=== PATIENT | male | born 1965 | race Caucasian/White ===

== ENCOUNTER 2016-02-10 08:05 | Emergency (ER) | payer BC ==
[2016-02-10 08:22] VITALS: BP 161/112
--- NOTE | 2016-02-10 08:34 | UC ---
Throat Pain/Nasal Melquiades HPI - HPI Summary HPI Summary: Nasal congestion and cough starting 6 days ago. Denies fever, wheezing, or trouble breathing. No hx of breathing problems or heart disease. - History of Current Complaint Chief Complaint: UCGeneralIllness Stated Complaint: COUGH CONGESTION Time Seen by Provider: 02/10/16 08:24 Hx Obtained From: Patient Onset/Duration: Gradual Onset, Lasting Days Severity: Mild Cough: Nonproductive Associated Signs & Symptoms: Positive: Nasal Discharge. Negative: Wheezing, Fever, Vomiting - Allergies/Home Medications Allergies/Adverse Reactions: Allergies Allergy/AdvReac Type Severity Reaction Status Date / Time JITENDRA Inhibitors Allergy Rash Verified 07/21/15 08:21 Home Medications: Home Medications Multiple Vitamin [Multi Vitamin] 1 tab PO DAILY 02/10/16 [History Confirmed 03/27] Prasco (Bp Med) 1 tab PO DAILY 02/10/16 [History] PMH/Surg Hx/FS Hx/Imm Hx Endocrine History Of: Denies: Diabetes, Thyroid Disease Cardiovascular History Of: Reports: Hypertension Denies: Cardiac Disorders, Pacemaker/ICD Respiratory History Of: Denies: COPD, Asthma GI/ History Of: Reports: Gall Bladder Disease - cholecystectomy Denies: Ulcer - Surgical History Surgical History: Yes Surgery Procedure, Year, and Place: Gallbladdder 15 years ago. Tonsils 10 years ago - Family History Known Family History: Positive: Hypertension - Social History Occupation: Employed Full-time Lives: With Family Alcohol Use: Occasionally Substance Use Type: None Smoking Status (MU): Never Smoked Tobacco - Immunization History Most Recent Influenza Vaccination: fall 2013 Most Recent Tetanus Shot: current Most Recent Pneumonia Vaccination: never Review of Systems Constitutional: Negative Skin: Negative Eyes: Negative ENT: Nasal Discharge Respiratory: Cough Cardiovascular: Negative Gastrointestinal: Negative Genitourinary: Negative Motor: Negative Neurovascular: Negative Musculoskeletal: Negative Neurological: Negative Psychological: Negative All Other Systems Reviewed And Are Negative: Yes Physical Exam Triage Information Reviewed: Yes Appearance: Well-Appearing, No Pain Distress, Well-Nourished Vital Signs: Initial Vital Signs Temp 97.6 F 02/10/16 08:20 Pulse 70 02/10/16 08:20 Resp 18 02/10/16 08:20 BP 161/112 02/10/16 08:20 Pulse Ox 98 02/10/16 08:20 Vital Signs Reviewed: Yes Eye Exam: Normal Eyes: Positive: Conjunctiva Clear ENT: Positive: Hearing grossly normal, Pharynx normal, Nasal congestion, TMs normal. Negative: Pharyngeal erythema, Tonsillar swelling Dental Exam: Normal Neck exam: Normal Neck: Positive: Supple, Nontender, No Lymphadenopathy Respiratory Exam: Normal Respiratory: Positive: Chest non-tender, Lungs clear, Normal breath sounds, No respiratory distress, No accessory muscle use Cardiovascular Exam: Normal Cardiovascular: Positive: RRR, No Murmur Musculoskeletal Exam: Normal Neurological Exam: Normal Psychological Exam: Normal Skin Exam: Normal Throat Pain/Nasal Course/Dx - Differential Dx/Diagnosis Provider Diagnoses: URI, likely viral Discharge - Discharge Plan Condition: Stable Disposition: HOME Prescriptions: Benzonatate CAP* [Tessalon CAP*] 100 mg PO TID PRN #30 cap PRN Reason: Cough Guaifenesin-Codeine [Guaiatussin AC] 5 - 10 ml PO Q6H #120 ml MDD 40mL Patient Education Materials: Upper Respiratory Infection (ED) Referrals: Milton Ford MD [Primary Care Provider] - If Needed Additional Instructions: Call or return if you develop increasing fever, shortness of breath, chest pain , bloody sputum, or otherwise worsen. If you have not improved at all after several days, contact your primary care physician or return here.
== END 2016-02-10 08:32 | disposition home or self-care (01) ==
LOC: UCEAST 08:05
DX: J06.9 Acute upper respiratory infection, unspecified (principal)
CPT/HCPCS: 99212; G0463

== ENCOUNTER 2016-03-16 09:31 | Emergency (ER) | payer BC ==
[2016-03-16] MEDS: NS 0.9% 1000 ML* 2,000 ML IV ONE (10:15)
[2016-03-16 10:39] LABS: Hematocrit 51 % (42-52); Hemoglobin 16.9 g/dl (14.0-18.0); Mean Corpuscular HGB Conc 33 g/dl (31-36); Mean Corpuscular Hemoglobin 29 pg (27-31); Mean Corpuscular Volume 86 fL (80-94); Mean Platelet Volume 9 um3 (7.4-10.4); Red Blood Count 5.86 10^6/ul (4.0-5.4); Red Cell Distribution Width 13 % (10.5-15); White Blood Count 15.3 10^3/ul (3.5-10.8)
[2016-03-16 11:05] LABS: Albumin 4.3 g/dL (3.2-5.2); BUN/Creatinine Ratio 16.5 (8-20); C Reactive Protein 8.17 mg/L (< 5.00); Calcium 9.2 mg/dL (8.6-10.3); EGFR African American 114.4 (>60); EGFR Non-African American 88.9 (>60); Globulin 2.9 g/dL (2-4); Magnesium 1.9 mg/dL (1.9-2.7); Potassium 3.7 mmol/L (3.5-5.0); Total Bilirubin 0.8 mg/dL (0.2-1.0); Total Protein 7.2 g/dL (6.4-8.9)
[2016-03-16] MEDS ORDERED: Iohexol 350* (CONTRAST) 500 ML MDV IV ONE (11:37)
[2016-03-16 11:57] LABS: Urine Bilirubin Negative (Negative); Urine Glucose Negative (Negative); Urine Nitrite Negative (Negative)
--- NOTE | 2016-03-16 12:05 | RAD ---
Indication: Chest and abdominal pain, epigastric pain. IV contrast: Administered 99.8 ml of OMNIPAQUE 350 mgi/ml. CTA of the chest, abdomen and pelvis was performed after IV contrast administration. Coronal and sagittal reconstructed images were obtained. No oral contrast was administered. The ascending aorta, aortic arch and descending thoracic aorta demonstrates no evidence of aortic dissection. No aneurysmal dilatation is noted. The inferior thyroid lobes are unremarkable. There is no mediastinal or hilar adenopathy noted. The trachea and major bronchi appear patent. The visualized pulmonary arteries and veins demonstrate no evidence of filling defects to suggest pulmonary embolus. Dependent changes are noted in the lung groves. No alveolar consolidation is noted. CTA of the abdomen and pelvis demonstrates no evidence of aneurysm dilatation. Common iliac arteries and external iliac arteries are tortuous but do not demonstrate aneurysmal dilatation. The liver is diffusely decreased in density consistent with hepatic steatosis. The spleen is normal in size. The pancreas demonstrates no mass or pancreatic duct dilatation. No peripancreatic fluid is noted. Common duct is not dilated. Patient is status post cholecystectomy. No adrenal masses are noted. The kidneys demonstrate symmetric nephrograms. No retroperitoneal adenopathy is noted. No dilated loops of bowel are noted. No free fluid is identified. The visualized bony structures are otherwise unremarkable. IMPRESSION: No evidence of aortic dissection. No definite pulmonary embolus is noted. No evidence of descending thoracic aorta aneurysm or abdominal aortic aneurysm. Hepatic steatosis noted. No evidence of peripancreatic fluid or infiltration is noted to suggest pancreatitis. Patient is status post cholecystectomy.
[2016-03-16 12:42] VITALS: BP 131/94
--- NOTE | 2016-03-16 13:39 | ED ---
John Gupta Adam, scribed for Alex Sen MD on 03/16/16 at 0957 . HPI Chest Pain - HPI Summary HPI Summary: Pt is a 50 year old male presenting with a sudden onset CP and abdominal pain. He states that the pain woke him up at 01:00 this morning and has been intermittent since then. He describes the CP and abd pain as two distinct areas of pain without continuity between them, but he states that they set on simultaneously. The CP is described as a mid-sternal tightness with associated right shoulder pain. The abdominal pain is localized around the epigastrium and does not radiate. Pt states that he has never had pain like this last for this long. He has not taken any medication for the pain. He denies SOB, nausea, diaphoresis, diarrhea, vomiting, fever, chills, myalgia, pain/swelling in the legs, and testicular pain. He last ate at 18:30 last night. He had a recent BM that was normal. 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 PMHx of HTN. Surgical Hx of choly; no appy. Negative Hx of GERD and ulcers. No tobacco/ alcohol. - History of Current Complaint Chief Complaint: EDAbdPain Time Seen by Provider: 03/16/16 09:44 Hx Obtained From: Patient Onset/Duration: Started Hours Ago, Atraumatic, Still Present Timing: Intermittent Initial Severity: Moderate Current Severity: Moderate Pain Intensity: 5 Pain Scale Used: 0-10 Numeric Chest Pain Location: Mid Sternal Chest Pain Radiates: Yes Chest Pain Radiates To:: Epigastric Character: Tightness Aggravating Factor(s): Nothing Alleviating Factor(s): Nothing Associated Signs and Symptoms: Positive: Chest Pain, Abdominal Pain - Allergy/Home Medications Allergies/Adverse Reactions: Allergies Allergy/AdvReac Type Severity Reaction Status Date / Time JITENDRA Inhibitors Allergy Rash Verified 03/16/16 10:13 PMH/Surg Hx/FS Hx/Imm Hx Endocrine/Hematology History: Reports: Hx Blood Disorders - erythrocytosis (Dr. Rangel) Denies: Hx Diabetes, Hx Thyroid Disease Cardiovascular History: Reports: Hx Hypertension Denies: Hx Pacemaker/ICD Respiratory History: Reports: Hx Sleep Apnea Denies: Hx Asthma, Hx Chronic Obstructive Pulmonary Disease (COPD) GI History: Reports: Hx Gall Bladder Disease - cholecystectomy Denies: Hx Ulcer Musculoskeletal History: Reports: Hx Back Problems - pain, Other Musculoskeletal History - knee pain Sensory History: Reports: Hx Contacts or Glasses Denies: Hx Hearing Aid Opthamlomology History: Reports: Hx Contacts or Glasses Psychiatric History: Denies: Hx Panic Disorder - Surgical History Surgery Procedure, Year, and Place: Gallbladdder 15 years ago. Tonsils 10 years ago Infectious Disease History: No Infectious Disease History: Denies: Hx Clostridium Difficile, Hx Hepatitis, Hx Human Immunodeficiency Virus (HIV), Hx of Known/Suspected MRSA, Hx Shingles, Hx Tuberculosis, History Other Infectious Disease, Traveled Outside the [place] in Last 30 Days - Family History Known Family History: Positive: Hypertension - Social History Occupation: Employed Full-time Lives: With Family - Alcohol Use: Occasionally Hx Substance Use: No Substance Use Type: Reports: None Hx Tobacco Use: No Smoking Status (MU): Never Smoked Tobacco Review of Systems Negative: Fever, Chills, Skin Diaphoresis Positive: Chest Pain Negative: Shortness Of Breath Positive: Abdominal Pain. Negative: Vomiting, Diarrhea, Nausea Negative: Myalgia All Other Systems Reviewed And Are Negative: Yes Physical Exam - Summary Physical Exam Summary: The patient is well-nourished in no acute distress and in no acute pain. The skin is diaphoretic. HEENT: The head is normocephalic and atraumatic. The pupils are equal and reactive. The conjunctivae are clear and without drainage. Nares are patent and without drainage. Mouth reveals moist mucous membranes and the throat is without erythema and exudate. The external ears are intact. Neck is supple with full range of motion and non-tender. There are no carotid bruits. There is no neck vein distension. Respiratory: Chest is non-tender. Lungs are clear to auscultation and breath sounds are symmetrical and equal. Cardiovascular: Heart is regular rate and rhythm. High BP. There is no murmur or rub auscultated. There is no peripheral edema and pulses are symmetrical and equal. Abdomen: Epigastric and periumbilical tenderness. Musculoskeletal: Reproducible pain in the chest. No calf swelling/tenderness. Neurological: Patient is alert and oriented to person, place and time. The patient has symmetrical motor strength in all four extremities. Cranial nerves are grossly intact. Deep tendon reflexes are symmetrical and equal in all four extremities. Psychiatric: The patient has an appropriate affect and does not exhibit any anxiety or depression. Triage Information Reviewed: Yes Vital Signs On Initial Exam: Initial Vitals Temp Pulse Resp BP Pulse Ox 98.1 F 84 18 159/103 98 03/16/16 09:33 03/16/16 09:33 03/16/16 09:33 03/16/16 09:33 03/16/16 09:33 Vital Signs Reviewed: Yes - Noel Coma Scale Coma Scale Total: 15 Diagnostics - Vital Signs Vital Signs Temp Pulse Resp BP Pulse Ox 03/16/16 09:33 98.1 F 84 18 159/103 98 - Laboratory Lab Results: Lab Results 03/16/16 03/16/16 03/16/16 Range/Units 09:50 09:50 09:50 WBC 15.3 H (3.5-10.8) 10^3/ul RBC 5.86 H (4.0-5.4) 10^6/ul Hgb 16.9 (14.0-18.0) g/dl Hct 51 (42-52) % MCV 86 (80-94) fL MCH 29 (27-31) pg MCHC 33 (31-36) g/dl RDW 13 (10.5-15) % Plt Count 263 (150-450) 10^3/ul MPV 9 (7.4-10.4) um3 Neut % (Auto) 80.4 (38-83) % Lymph % (Auto) 9.7 L (25-47) % [place] % (Auto) 7.4 (1-9) % Eos % (Auto) 2.0 (0-6) % Baso % (Auto) 0.5 (0-2) % Absolute Neuts (auto) 12.3 H (1.5-7.7) 10^3/ul Absolute Lymphs (auto) 1.5 (1.0-4.8) 10^3/ul Absolute Monos (auto) 1.1 H (0-0.8) 10^3/ul Absolute Eos (auto) 0.3 (0-0.6) 10^3/ul Absolute Basos (auto) 0.1 (0-0.2) 10^3/ul Absolute Nucleated RBC 0 10^3/ul Nucleated RBC % 0 INR (Anticoag Therapy) (0.89-1.11) Sodium 137 (133-145) mmol/L Potassium 3.7 (3.5-5.0) mmol/L Chloride 105 (101-111) mmol/L Carbon Dioxide 25 (22-32) mmol/L Anion Gap 7 (2-11) mmol/L BUN 15 (6-24) mg/dL Creatinine 0.91 (0.67-1.17) mg/dL Est GFR ( Amer) 114.4 (>60) Est GFR (Non-Af Amer) 88.9 (>60) BUN/Creatinine Ratio 16.5 (8-20) Glucose 150 H (70-100) mg/dL Lactic Acid 1.2 (0.5-2.0) mmol/L Calcium 9.2 (8.6-10.3) mg/dL Magnesium 1.9 (1.9-2.7) mg/dL Total Bilirubin 0.80 (0.2-1.0) mg/dL AST 28 (13-39) U/L ALT 37 (7-52) U/L Alkaline Phosphatase 57 (34-104) U/L Total Creatine Kinase 149 (10-223) U/L Troponin I 0.00 (<0.04) ng/mL C-Reactive Protein 8.17 H (< 5.00) mg/L B-Natriuretic Peptide ( - 100) pg/mL Total Protein 7.2 (6.4-8.9) g/dL Albumin 4.3 (3.2-5.2) g/dL Globulin 2.9 (2-4) g/dL Albumin/Globulin Ratio 1.5 (1-3) Amylase 42 (29-103) U/L Lipase 27 (11.0-82.0) U/L Urine Color Urine Appearance Urine pH (5-9) Ur Specific [place] (1.010-1.030) Urine Protein (Negative) Urine Ketones (Negative) Urine Blood (Negative) Urine Nitrate (Negative) Urine Bilirubin (Negative) Urine Urobilinogen (Negative) Ur Leukocyte Esterase (Negative) Urine Glucose (Negative) Urine Ascorbic Acid (Negative) 03/16/16 03/16/16 03/16/16 Range/Units 09:50 09:50 11:40 WBC (3.5-10.8) 10^3/ul RBC (4.0-5.4) 10^6/ul Hgb (14.0-18.0) g/dl Hct (42-52) % MCV (80-94) fL MCH (27-31) pg MCHC (31-36) g/dl RDW (10.5-15) % Plt Count (150-450) 10^3/ul MPV (7.4-10.4) um3 Neut % (Auto) (38-83) % Lymph % (Auto) (25-47) % [place] % (Auto) (1-9) % Eos % (Auto) (0-6) % Baso % (Auto) (0-2) % Absolute Neuts (auto) (1.5-7.7) 10^3/ul Absolute Lymphs (auto) (1.0-4.8) 10^3/ul Absolute Monos (auto) (0-0.8) 10^3/ul Absolute Eos (auto) (0-0.6) 10^3/ul Absolute Basos (auto) (0-0.2) 10^3/ul Absolute Nucleated RBC 10^3/ul Nucleated RBC % INR (Anticoag Therapy) 0.97 (0.89-1.11) Sodium (133-145) mmol/L Potassium (3.5-5.0) mmol/L Chloride (101-111) mmol/L Carbon Dioxide (22-32) mmol/L Anion Gap (2-11) mmol/L BUN (6-24) mg/dL Creatinine (0.67-1.17) mg/dL Est GFR ( Amer) (>60) Est GFR (Non-Af Amer) (>60) BUN/Creatinine Ratio (8-20) Glucose (70-100) mg/dL Lactic Acid (0.5-2.0) mmol/L Calcium (8.6-10.3) mg/dL Magnesium (1.9-2.7) mg/dL Total Bilirubin (0.2-1.0) mg/dL AST (13-39) U/L ALT (7-52) U/L Alkaline Phosphatase (34-104) U/L Total Creatine Kinase (10-223) U/L Troponin I (<0.04) ng/mL C-Reactive Protein (< 5.00) mg/L B-Natriuretic Peptide 52 ( - 100) pg/mL Total Protein (6.4-8.9) g/dL Albumin (3.2-5.2) g/dL Globulin (2-4) g/dL Albumin/Globulin Ratio (1-3) Amylase (29-103) U/L Lipase (11.0-82.0) U/L Urine Color Yellow Urine Appearance Clear Urine pH 5.0 (5-9) Ur Specific [place] 1.017 (1.010-1.030) Urine Protein Negative (Negative) Urine Ketones Negative (Negative) Urine Blood Negative (Negative) Urine Nitrate Negative (Negative) Urine Bilirubin Negative (Negative) Urine Urobilinogen Negative (Negative) Ur Leukocyte Esterase Negative (Negative) Urine Glucose Negative (Negative) Urine Ascorbic Acid * H (Negative) Result Diagrams: 03/16/16 09:50 03/16/16 09:50 Lab Statement: Any lab studies that have been ordered have been reviewed, and results considered in the medical decision making process. - CT CHEST/ABDOMEN/PELVIS CTA CT Interpretation Completed By: Radiologist - EKG 09:37 Cardiac Rate: NL - 63 BPM EKG Rhythm: Sinus Rhythm - Normal axis ST Segment: Non-Specific - Changes throughout EKG Interpretation: ST depressions in V4-V6 - Additional Comments Diagnostic Additional Comments: Troponin I - 0.00 Re-Evaluation - Re-Evaluation First Eval Re-Evaluation Time: 12:25 Change: Improved - Patient is feeling better. I reviewed CTA and lab work results. Patient will be discharged with Protonix. Chest Pain Course/Dx - Chest Pain Differential Diagnosis/HQI/PQRI: Angina, Aortic Aneurysm, GI Disease, Pulmonary Edema, Other: - peptic ulcer disease, GERD - Diagnoses Provider Diagnoses: GERD (gastroesophageal reflux disease) Discharge - Discharge Plan Condition: Stable Disposition: HOME Prescriptions: Pantoprazole TAB (NF) [Protonix TAB (NF)] 40 mg PO DAILY #30 tab Patient Education Materials: Gastroesophageal Reflux Disease (ED) Referrals: Milton Ford MD [Primary Care Provider] - Additional Instructions: Follow up with Dr. Ford. The documentation as recorded by the John perdomo Adam accurately reflects the service I personally performed and the decisions made by me, Alex Sen MD.
== END 2016-03-16 12:40 | disposition home or self-care (01) ==
LOC: ED 09:31
DX: K21.9 Gastro-esophageal reflux disease without esophagitis (principal); R07.9 Chest pain, unspecified; R10.9 Unspecified abdominal pain
CPT/HCPCS: 36415; 71275; 74174; 80053; 81003; 82150; 82550; 83605; 83690; 83735; 83880; 84484; 85025; 85610; 86140; 93005; 99283; Q9967

== ENCOUNTER 2016-06-14 07:57 | Emergency (ER) | payer BC ==
[2016-06-14] MEDS ORDERED: Ibuprofen TAB* 600 MG PO ONE (08:12)
--- NOTE | 2016-06-14 08:17 | UC ---
Hand/Wrist HPI - HPI Summary HPI Summary: While watching sports on TV last night pt became upset and slapped hand down hard on arm of chair. Now pain in L hand, especially near base of thumb and along 5th MC. No prior sx or fx. - History Of Current Complaint Chief Complaint: UCUpperExtremity Stated Complaint: HAND INJURY Time Seen by Provider: 06/14/16 08:07 Hx Obtained From: Patient ?: No Onset/Duration: Sudden Onset Severity Initially: Moderate Severity Currently: Moderate Character Of Pain: Dull, Stiffness Aggravating Factor(s): Movement Alleviating: Rest, Ice Associated Signs And Symptoms: Positive: Swelling Related History: Dominant Hand Right - Allergies/Home Medications Allergies/Adverse Reactions: Allergies Allergy/AdvReac Type Severity Reaction Status Date / Time JITENDRA Inhibitors Allergy Rash Verified 03/16/16 10:13 Home Medications: Home Medications Ranitidine HCl [Zantac] 06/14/16 [History] PMH/Surg Hx/FS Hx/Imm Hx Endocrine History Of: Denies: Diabetes, Thyroid Disease Cardiovascular History Of: Reports: Hypertension Denies: Cardiac Disorders, Pacemaker/ICD Respiratory History Of: Denies: COPD, Asthma GI/ History Of: Reports: Gall Bladder Disease - cholecystectomy Denies: Ulcer - Surgical History Surgical History: Yes Surgery Procedure, Year, and Place: Gallbladdder 15 years ago. 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 Lives: With Family Alcohol Use: Occasionally Substance Use Type: None Smoking Status (MU): Never Smoked Tobacco - Immunization History Most Recent Influenza Vaccination: fall 2013 Most Recent Tetanus Shot: current Most Recent Pneumonia Vaccination: never Review of Systems Constitutional: Negative Skin: Negative Eyes: Negative ENT: Negative Respiratory: Negative Cardiovascular: Negative Gastrointestinal: Negative Genitourinary: Negative Motor: Negative Neurovascular: Negative Musculoskeletal: Arthralgia - pain in L hand Neurological: Negative Psychological: Negative All Other Systems Reviewed And Are Negative: Yes Physical Exam Triage Information Reviewed: Yes Appearance: Well-Appearing, No Pain Distress, Well-Nourished Vital Signs: Initial Vital Signs Temp 98.2 F 06/14/16 08:01 Pulse 68 06/14/16 08:01 Resp 16 06/14/16 08:01 BP 163/101 06/14/16 08:01 Pulse Ox 99 06/14/16 08:01 Vital Signs Reviewed: Yes Eye Exam: Normal Eyes: Positive: Conjunctiva Clear ENT Exam: Normal ENT: Positive: Normal ENT inspection, Hearing grossly normal, Pharynx normal, TMs normal Dental Exam: Normal Neck exam: Normal Neck: Positive: Supple, Nontender, No Lymphadenopathy Respiratory Exam: Normal Respiratory: Positive: Chest non-tender, Lungs clear, Normal breath sounds, No respiratory distress, No accessory muscle use Cardiovascular Exam: Normal Cardiovascular: Positive: RRR, No Murmur Musculoskeletal: Positive: Strength Limited @ - 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 Elevated blood pressure due to pain Discharge - Discharge Plan Condition: Stable Disposition: HOME Patient Education Materials: Hand Sprain (ED) Referrals: Milton Ford MD [Primary Care Provider] - Julius Romero MD [Medical Doctor] - Additional Instructions: Use the splint as needed only -- you may remove for bathing and/or sleeping. If your pain is not completely or nearly resolved within a week, please call the orthopedist listed here to make a follow-up appointment. I do not see any broken bones in your x-ray; a radiologist will put in an interpretation later and I will call you if we need to change the plan.
[2016-06-14 08:56] VITALS: BP 137/95
--- NOTE | 2016-06-14 09:24 | RAD ---
INDICATION: Pain at the base of the left thumb and fifth metacarpal after striking hand on wooden surface the previous night COMPARISON: None. TECHNIQUE: 4 views of the left hand were obtained. FINDINGS: The adequately corticated bones are in normal alignment. No significant focal osseous abnormality or fracture is seen. Joint spaces appear maintained. IMPRESSION: Normal left hand radiograph. If the patient's symptoms persist, follow-up imaging is recommended.
== END 2016-06-14 08:56 | disposition home or self-care (01) ==
LOC: UCEAST 07:57
DX: S63.92XA Sprain of unspecified part of left wrist and hand, initial encounter (principal); I10 Essential (primary) hypertension; R52 Pain, unspecified; Z90.49 Acquired absence of other specified parts of digestive tract; W22.09XA Striking against other stationary object, initial encounter
CPT/HCPCS: 99212; A9270-GY; G0463

== ENCOUNTER 2016-08-20 14:47 | Emergency (ER) | payer BC ==
[2016-08-20 15:18] VITALS: BP 149/100
[2016-08-20] MEDS ORDERED: Ondansetron INJ* 2 MG/ML VIAL IV ONE (16:02)
[2016-08-20] MEDS ORDERED: NS 0.9% 1000 ML* 1,000 ML IV ONE (16:02)
--- NOTE | 2016-08-20 17:03 | UC ---
Gabrielle Gupta Edward, scribed for Josesito Serrano MD on 08/20/16 at 1549 . HPI Febrile Illness - HPI Summary HPI Summary: 50 y/o male presents to [facility] c/o fever starting last night. Associated sx: GREGG, diaphoresis, chills, intermittent ABD cramping, dizziness, body aches - stiff neck, lower back aches, knee aches, diarrhea, nausea, mild cough, and mild ear pressure that started last night. Denies rhinorrhea, sore throat, problems with urination, rash. Patient does not have a thermometer at home. PMHx HTN. Patient took Tylenol last night for symptoms. - History of Current Complaint Chief Complaint: UCGeneralIllness Time Seen by Provider: 08/20/16 15:48 Hx Obtained From: Patient Onset/Duration: Started Days Ago - Last night Associated Signs and Symptoms: Chills, Cough - Mild, Diaphoresis, Diarrhea, Headache, Joint Pain - Knee, lower back, Nausea, Stiff Neck, Other: - Mild eaer pressure - Allergy/Home Medications Allergies/Adverse Reactions: Allergies Allergy/AdvReac Type Severity Reaction Status Date / Time JITENDRA Inhibitors Allergy Rash Verified 08/20/16 15:18 Home Medications: Home Medications Bp Med* 08/20/16 [History] PMH/Surg Hx/FS Hx/Imm Hx Previously Healthy: No Endocrine/Hematology History: Reports: Hx Blood Disorders - erythrocytosis (Dr. Rangel) Denies: Hx Diabetes, Hx Thyroid Disease Cardiovascular History: Reports: Hx Hypertension Denies: Hx Pacemaker/ICD Respiratory History: Reports: Hx Sleep Apnea Denies: Hx Asthma, Hx Chronic Obstructive Pulmonary Disease (COPD) GI History: Reports: Hx Gall Bladder Disease - cholecystectomy Denies: Hx Ulcer Musculoskeletal History: Reports: Hx Back Problems - pain, Other Musculoskeletal History - knee pain Sensory History: Reports: Hx Contacts or Glasses Denies: Hx Hearing Aid Opthamlomology History: Reports: Hx Contacts or Glasses Psychiatric History: Denies: Hx Panic Disorder - Surgical History Surgery Procedure, Year, and Place: Gallbladdder 15 years ago. Tonsils 10 years ago Infectious Disease History: No Infectious Disease History: Denies: Hx Clostridium Difficile, Hx Hepatitis, Hx Human Immunodeficiency Virus (HIV), Hx of Known/Suspected MRSA, Hx Shingles, Hx Tuberculosis, Hx Known/ Suspected VRE, Hx Known/Suspected VRSA, History Other Infectious Disease, Traveled Outside the [place] in Last 30 Days - Family History Known Family History: Positive: Hypertension, Diabetes - Social History Alcohol Use: Occasionally Hx Substance Use: No Substance Use Type: Reports: None Hx Tobacco Use: No Smoking Status (MU): Never Smoked Tobacco Review of Systems Constitutional: Fever, Chills Skin: Negative Eyes: Negative ENT: Sore Throat, Ear Ache - Slight ear pressure Respiratory: Cough - Mild Cardiovascular: Negative Gastrointestinal: Diarrhea, Nausea Genitourinary: Negative Motor: Negative Neurovascular: Negative Musculoskeletal: Other: - Body aches - stiff neck, lower back aches, knee aches Neurological: Headache Psychological: Negative All Other Systems Reviewed And Are Negative: Yes Physical Exam Triage Information Reviewed: Yes Appearance: No Pain Distress, Ill-Appearing - Mild to moderately Vital Signs: Initial Vital Signs Temp 98.9 F 08/20/16 15:15 Pulse 78 08/20/16 15:15 Resp 16 08/20/16 15:15 BP 149/100 08/20/16 15:15 Pulse Ox 99 08/20/16 15:15 Vital Signs Reviewed: Yes Eyes: Positive: Conjunctiva Clear ENT: Positive: Pharynx normal, Other: - Clear fluid behind L eardrum. R eardrum normal. Neck: Positive: Supple, Nontender Respiratory: Positive: Chest non-tender, Lungs clear, Normal breath sounds Cardiovascular: Positive: RRR Abdomen Description: Positive: Nontender, Soft Bowel Sounds: Positive: Present Musculoskeletal: Positive: Strength Intact, Other: - Pain w/ ROM @ neck Neurological Exam: Normal Neurological: Positive: Alert Psychological Exam: Normal Psychological: Positive: Age Appropriate Behavior Skin Exam: Other - Mildly diaphoretic Course/Dx - Course Course Of Treatment: GENERALIZED FEBRILE ILLNEE. NO RASH. NO FOCAL SOURCE. WITH GREGG, NECK/BACK PAIN; PATIENT TRANSFERED TO ED FOR FURTHER EVALUATION. Assessment/Plan: Medications reviewed upon visit. - Diagnoses Clinic Provider Diagnoses: FEBRILE ILLNESS WITH HEADACHE, BACK PAIN AND ABDOMINAL PAIN Discharge - Discharge Plan Condition: Stable Disposition: ADMITTED TO [facility] Referrals: Milton Ford MD [Primary Care Provider] - The documentation as recorded by the Gabrielle perdomo Edward accurately reflects the service I personally performed and the decisions made by , Josesito Serrano MD.
== END 2016-08-20 16:31 | disposition short-term general hospital (02) ==
LOC: UCEAST 14:47
DX: R50.9 Fever, unspecified (principal); R51 Headache; R10.9 Unspecified abdominal pain; M54.5 Low back pain; I10 Essential (primary) hypertension; D75.9 Disease of blood and blood-forming organs, unspecified; Z95.810 Presence of automatic (implantable) cardiac defibrillator
CPT/HCPCS: 96361; 96365; 96374; 99213; G0463; J2405

== ENCOUNTER 2016-08-20 16:54 | Emergency (ER) | payer BC ==
[2016-08-20] MEDS ORDERED: NS 0.9% 1000 ML* 3,000 ML IV ONE (17:25)
[2016-08-20] MEDS ORDERED: Vancomycin(*) 1,500 MG in NS 0.9% 250 ML* 250 ML IVPB ONE (17:26)
[2016-08-20] MEDS ORDERED: Acetaminophen TAB* 325 MG PO ONE (17:26)
[2016-08-20 17:38] LABS: Hematocrit 49 % (42-52); Hemoglobin 16.3 g/dl (14.0-18.0); Mean Corpuscular HGB Conc 33 g/dl (31-36); Mean Corpuscular Hemoglobin 30 pg (27-31); Mean Corpuscular Volume 89 fL (80-94); Mean Platelet Volume 9 um3 (7.4-10.4); Red Blood Count 5.49 10^6/ul (4.0-5.4); Red Cell Distribution Width 13 % (10.5-15); White Blood Count 7.7 10^3/ul (3.5-10.8)
[2016-08-20 17:50] LABS: Albumin 4.4 g/dL (3.2-5.2); BUN/Creatinine Ratio 11.1 (8-20); Calcium 9.2 mg/dL (8.6-10.3); EGFR African American 93.9 (>60); Globulin 3.2 g/dL (2-4); Potassium 3.2 mmol/L (3.5-5.0); Total Bilirubin 1.7 mg/dL (0.2-1.0); Total Protein 7.6 g/dL (6.4-8.9)
[2016-08-20 17:51] LABS: Troponin I 0.01 ng/mL (<0.04)
--- NOTE | 2016-08-20 18:31 | RAD ---
INDICATION: Fever COMPARISON: Similar x-ray June 09, 2004 TECHNIQUE: Single AP portable view of the chest was obtained. FINDINGS: Image quality is compromised due to the relative inferiority of a portable chest x-ray. The heart and mediastinum exhibit normal size and contour. The lungs are grossly clear. There is no evidence of a large pleural effusion. Visualized bones are normal for the patient's age. IMPRESSION: No radiographic evidence for acute cardiopulmonary abnormality on this portable chest x-ray.
[2016-08-20] MEDS ORDERED: NS 0.9% 250 ML* 250 ML ONE (19:10)
[2016-08-20 19:21] LABS: Urine Bacteria Absent (Absent); Urine Bilirubin Negative (Negative); Urine Glucose Negative (Negative); Urine Nitrite Negative (Negative)
[2016-08-20 19:49] LABS: C Reactive Protein 87.86 mg/L (< 5.00)
[2016-08-20 20:58] LABS: CSF Glucose 80 mg/dL (40-70)
[2016-08-20 21:44] LABS: Erythrocyte Sed Rate 15 mm/Hr (0-14)
[2016-08-20 21:54] LABS: Body Fluid Appearance Clear
[2016-08-20 21:55] LABS: BF RBC Count #1 0; BF RBC Count #2 0; BF WBC Count #1 0; BF WBC Count #2 0; Body Fluid WBC 0 /mcL; RBC counts within 6%? Yes; WBC counts within 15%? Yes
[2016-08-20] MEDS ORDERED: Ibuprofen TAB* 600 MG PO ONE (22:06)
[2016-08-20 22:11] LABS: Body Fluid Total Cells Counted 24
[2016-08-20 22:26] VITALS: BP 146/78
[2016-08-23 18:30] LABS: B garinii/B afzelii PCR Negative (Negative); B mayonii PCR Negative (Negative)
--- NOTE | 2016-08-24 10:22 | ED ---
Yue Gupta Thomas, scribed for Aleksey Hess MD on 08/20/16 at 1934 . Complex/Multi-Sys Presentation - HPI Summary HPI Summary: The pt is a 50 y/o M BIBA referred from urgent care to rule out meningitis. Sx began two days ago and include neck stiffness, GREGG, back pain (bilateral), intermittent diaphoresis, chills, abd pain (cramping quality), nausea, diarrhea (just a little bit). His neck stiffness still is present but has improved since onset of Sx. The pt denies vomiting, dysuria, hematuria, cough, rashes, sores, photophobia, sore throat, and fever (102.3 in the ED). PMHx: HTN. PSHx: cholecystectomy, tonsillectomy. The pt does not have a known recent tick bite. The pt denies a Hx of kidney stones. The patient has previously had trace of blood in his urine that was evaluated by a urologist. No Hx kidney stones. SHx: no smoking, occasional drinking. - History Of Current Complaint Chief Complaint: EDNeckComplaint Time Seen by Provider: 08/20/16 17:23 Hx Obtained From: Patient Onset/Duration: Lasting Days - 2 days, Still Present Timing: Constant Associated Signs And Symptoms: Positive: Headache, Nausea, Diarrhea - "just a little bit", Back Pain - bilateral, Other - POS: neck stiffness (better since onset of Sx), intermittent diaphoresis,, chills, abd pain (cramping quality); NEG: hematuria, rashes, sores, photophobia, sore throat. Negative: Cough, Vomiting, Dysuria - Allergies/Home Medications Allergies/Adverse Reactions: Allergies Allergy/AdvReac Type Severity Reaction Status Date / Time JITENDRA Inhibitors Allergy Rash Verified 08/20/16 15:18 PMH/Surg Hx/FS Hx/Imm Hx Previously Healthy: No Endocrine/Hematology History: Reports: Hx Blood Disorders - erythrocytosis (Dr. Rangel) Denies: Hx Diabetes, Hx Thyroid Disease Cardiovascular History: Reports: Hx Hypertension Denies: Hx Pacemaker/ICD Respiratory History: Reports: Hx Sleep Apnea Denies: Hx Asthma, Hx Chronic Obstructive Pulmonary Disease (COPD) GI History: Reports: Hx Gall Bladder Disease - cholecystectomy Denies: Hx Ulcer Musculoskeletal History: Reports: Hx Back Problems - pain, Other Musculoskeletal History - knee pain Sensory History: Reports: Hx Contacts or Glasses Denies: Hx Hearing Aid Opthamlomology History: Reports: Hx Contacts or Glasses Psychiatric History: Denies: Hx Panic Disorder - Surgical History Surgery Procedure, Year, and Place: Gallbladdder 15 years ago. Tonsils 10 years ago Infectious Disease History: No Infectious Disease History: Denies: Hx Clostridium Difficile, Hx Hepatitis, Hx Human Immunodeficiency Virus (HIV), Hx of Known/Suspected MRSA, Hx Shingles, Hx Tuberculosis, Hx Known/ Suspected VRE, Hx Known/Suspected VRSA, History Other Infectious Disease, Traveled Outside the [place] in Last 30 Days - Family History Known Family History: Positive: Hypertension, Diabetes - Social History Alcohol Use: Occasionally Hx Substance Use: No Substance Use Type: Reports: None Hx Tobacco Use: No Smoking Status (MU): Never Smoked Tobacco Review of Systems Positive: Fever, Skin Diaphoresis - intermittent. Negative: Chills Eyes: Negative Negative: Photophobia, Erythema - eyes Positive: Other - POS: neck stiffness (onset 2 days ago, improved since onset of Sx), . Negative: Sore Throat Cardiovascular: Negative Negative: Chest Pain Respiratory: Negative Negative: Shortness Of Breath, Cough Positive: Abdominal Pain - cramping quality, Diarrhea - "just a little bit", Nausea. Negative: Vomiting Genitourinary: Negative Negative: dysuria, hematuria Positive: Other - POS: back pain (bilateral), Skin: Negative Negative: Rash, Other - NEG: sores Neurological: Other - NEG: dizziness Positive: Headache Psychological: Normal All Other Systems Reviewed And Are Negative: Yes Physical Exam - Summary Physical Exam Summary: Constitutional: Well-developed, Well-nourished, Alert. (-) Distressed Skin: Warm, Dry HENT: Normocephalic; Atraumatic Eyes: Conjunctiva normal Neck: Musculoskeletal ROM normal neck. (-) JVD, (-) Stridor, (-) Tracheal deviation Cardio: Rhythm regular, rate normal, Heart sounds normal; Intact distal pulses; The pedal pulses are 2+ and symmetric. Radial pulses are 2+ and symmetric. (-) Murmur Pulmonary/Chest wall: Effort normal. (-) Respiratory distress, (-) Wheezes, (-) Rales Abd: Soft, (-) Tenderness, (-) Distension, (-) Guarding, (-) Rebound Musculoskeletal: (-) Edema Lymph: (-) Cervical adenopathy Neuro: Alert, Oriented x3 Psych: Mood and affect Normal Triage Information Reviewed: Yes Vital Signs On Initial Exam: Initial Vitals Temp Pulse Resp BP Pulse Ox 102.3 F 79 18 150/94 95 08/20/16 17:02 08/20/16 17:02 08/20/16 17:02 08/20/16 17:02 08/20/16 17:02 Vital Signs Reviewed: Yes Procedures - Lumbar Puncture Position: Lateral Decubitus Aseptic Technique: Lidocaine Anesthesia Used: 1.0% Lido - 3 mL used Spinal Needle Used: 22 Gauge Lumbar Puncture Note: L4, L5 interspace. Sterile Prep. Clear Fluid Diagnostics - Vital Signs Vital Signs Temp Pulse Resp BP Pulse Ox 08/20/16 17:02 102.3 F 79 18 150/94 95 - Laboratory Lab Results: Lab Results 08/20/16 08/20/16 08/20/16 Range/Units 16:15 16:15 16:15 WBC 7.7 (3.5-10.8) 10^3/ul RBC 5.49 H (4.0-5.4) 10^6/ul Hgb 16.3 (14.0-18.0) g/dl Hct 49 (42-52) % MCV 89 (80-94) fL MCH 30 (27-31) pg MCHC 33 (31-36) g/dl RDW 13 (10.5-15) % Plt Count 201 (150-450) 10^3/ul MPV 9 (7.4-10.4) um3 Neut % (Auto) 71.3 (38-83) % Lymph % (Auto) 15.3 L (25-47) % [place] % (Auto) 12.8 H (1-9) % Eos % (Auto) 0.1 (0-6) % Baso % (Auto) 0.5 (0-2) % Absolute Neuts (auto) 5.5 (1.5-7.7) 10^3/ul Absolute Lymphs (auto) 1.2 (1.0-4.8) 10^3/ul Absolute Monos (auto) 1.0 H (0-0.8) 10^3/ul Absolute Eos (auto) 0 (0-0.6) 10^3/ul Absolute Basos (auto) 0 (0-0.2) 10^3/ul Absolute Nucleated RBC 0.04 10^3/ul Nucleated RBC % 0.5 INR (Anticoag Therapy) 1.19 H (0.89-1.11) APTT 32.0 (26.0-36.3) seconds Sodium 131 L (133-145) mmol/L Potassium 3.2 L (3.5-5.0) mmol/L Chloride 98 L (101-111) mmol/L Carbon Dioxide 27 (22-32) mmol/L Anion Gap 6 (2-11) mmol/L BUN 12 (6-24) mg/dL Creatinine 1.08 (0.67-1.17) mg/dL Est GFR ( Amer) 93.9 (>60) Est GFR (Non-Af Amer) 73.0 (>60) BUN/Creatinine Ratio 11.1 (8-20) Glucose 111 H (70-100) mg/dL Lactic Acid (0.5-2.0) mmol/L Calcium 9.2 (8.6-10.3) mg/dL Total Bilirubin 1.70 H (0.2-1.0) mg/dL AST 30 (13-39) U/L ALT 36 (7-52) U/L Alkaline Phosphatase 60 (34-104) U/L Troponin I 0.01 (<0.04) ng/mL Total Protein 7.6 (6.4-8.9) g/dL Albumin 4.4 (3.2-5.2) g/dL Globulin 3.2 (2-4) g/dL Albumin/Globulin Ratio 1.4 (1-3) Urine Color Urine Appearance Urine pH (5-9) Ur Specific [place] (1.010-1.030) Urine Protein (Negative) Urine Ketones (Negative) Urine Blood (Negative) Urine Nitrate (Negative) Urine Bilirubin (Negative) Urine Urobilinogen (Negative) Ur Leukocyte Esterase (Negative) Urine WBC (Auto) (Absent) Urine RBC (Auto) (Absent) Urine Bacteria (Absent) Urine Glucose (Negative) Urine Ascorbic Acid (Negative) 08/20/16 08/20/16 Range/Units 18:45 19:00 WBC (3.5-10.8) 10^3/ul RBC (4.0-5.4) 10^6/ul Hgb (14.0-18.0) g/dl Hct (42-52) % MCV (80-94) fL MCH (27-31) pg MCHC (31-36) g/dl RDW (10.5-15) % Plt Count (150-450) 10^3/ul MPV (7.4-10.4) um3 Neut % (Auto) (38-83) % Lymph % (Auto) (25-47) % [place] % (Auto) (1-9) % Eos % (Auto) (0-6) % Baso % (Auto) (0-2) % Absolute Neuts (auto) (1.5-7.7) 10^3/ul Absolute Lymphs (auto) (1.0-4.8) 10^3/ul Absolute Monos (auto) (0-0.8) 10^3/ul Absolute Eos (auto) (0-0.6) 10^3/ul Absolute Basos (auto) (0-0.2) 10^3/ul Absolute Nucleated RBC 10^3/ul Nucleated RBC % INR (Anticoag Therapy) (0.89-1.11) APTT (26.0-36.3) seconds Sodium (133-145) mmol/L Potassium (3.5-5.0) mmol/L Chloride (101-111) mmol/L Carbon Dioxide (22-32) mmol/L Anion Gap (2-11) mmol/L BUN (6-24) mg/dL Creatinine (0.67-1.17) mg/dL Est GFR ( Amer) (>60) Est GFR (Non-Af Amer) (>60) BUN/Creatinine Ratio (8-20) Glucose (70-100) mg/dL Lactic Acid 0.7 (0.5-2.0) mmol/L Calcium (8.6-10.3) mg/dL Total Bilirubin (0.2-1.0) mg/dL AST (13-39) U/L ALT (7-52) U/L Alkaline Phosphatase (34-104) U/L Troponin I (<0.04) ng/mL Total Protein (6.4-8.9) g/dL Albumin (3.2-5.2) g/dL Globulin (2-4) g/dL Albumin/Globulin Ratio (1-3) Urine Color Yellow Urine Appearance Cloudy Urine pH 6.0 (5-9) Ur Specific [place] 1.018 (1.010-1.030) Urine Protein Negative (Negative) Urine Ketones Negative (Negative) Urine Blood 3+ H (Negative) Urine Nitrate Negative (Negative) Urine Bilirubin Negative (Negative) Urine Urobilinogen Negative (Negative) Ur Leukocyte Esterase Negative (Negative) Urine WBC (Auto) Trace(0-5/hpf) (Absent) Urine RBC (Auto) 3+(>10/hpf) H (Absent) Urine Bacteria Absent (Absent) Urine Glucose Negative (Negative) Urine Ascorbic Acid * H (Negative) Result Diagrams: 08/20/16 16:15 08/20/16 16:15 Lab Statement: Any lab studies that have been ordered have been reviewed, and results considered in the medical decision making process. - Radiology CXR Xray Interpretation: No Acute Changes - No radiographic evidence for acute cardiopulmonary disease on the portable CXR. Radiology Interpretation Completed By: Radiologist Complex Multi-Symp Course/Dx Course Of Treatment: In the ED course the pt was given Acetaminophen, IV fluids , ceftriaxone, and vancomycin. Assessment/Plan: The pt is a 50 y/o M BIBA referred from urgent care to rule out meningitis. Sx began two days ago and include neck stiffness, GREGG, back pain (bilateral), intermittent diaphoresis, chills, abd pain (cramping quality), nausea, diarrhea (just a little bit). His neck stiffness still is present but has improved since onset of Sx. The pt denies vomiting, dysuria, hematuria, cough, rashes, sores, photophobia, sore throat, and fever (102.3 in the ED). PMHx: HTN. PSHx: cholecystectomy, tonsillectomy. The pt does not have a known recent tick bite. The pt denies a Hx of kidney stones. The patient has previously had trace of blood in his urine that was evaluated by a urologist. No Hx kidney stones. SHx: no smoking, occasional drinking. Although the pt is non meningismus and nontoxic appearance, given the constellation of Sx, viral meningitis still a possible diagnosis that must be ruled out. Bloodwork shows RBC 5.49, Lymph% 15.3, Furn[place]% 12.8, absolute Monos 1.0, INR 1.19, Sodium 131, Potassium 3.2, Chloride 98, Glucose 111, Total bilirubin 1.70, CRP 87.86. UA shows Blood 3+, RBC 3+. LP was performed. CSF clear with no signs of meningitis. In the ED course the pt was given Acetaminophen, IV fluids, ceftriaxone, and vancomycin. Pt was diagnosed with diarrhea and viral syndrome and discharged home with information on diarrhea and viral syndrome. Pt was instructed to follow up with his PCP in three days. Pt was instructed to return to the ED with new or worsening symptoms. Pt is agreeable to this plan. - Diagnoses Provider Diagnoses: Diarrhea, Viral syndrome Discharge - Discharge Plan Condition: Stable Disposition: HOME Patient Education Materials: Acute Diarrhea (ED), Viral Syndrome (ED) Forms: *Work Release Referrals: Milton Ford MD [Primary Care Provider] - 3 Days Additional Instructions: RETURN TO THE EMERGENCY DEPARTMENT FOR CHANGING OR WORSENING SYMPTOMS The documentation as recorded by the Yue perdomo Thomas accurately reflects the service I personally performed and the decisions made by Deshawn ochoa Jerry, MD.
== END 2016-08-20 22:25 | disposition home or self-care (01) ==
LOC: ED 16:54
DX: R19.7 Diarrhea, unspecified (principal); B34.9 Viral infection, unspecified; R51 Headache; R11.0 Nausea
CPT/HCPCS: 36415; 62270; 71010; 80053; 80074; 81003; 81015; 82945; 83605; 84157; 84484; 85025; 85610; 85652; 85730; 86140; 86618; 87040; 87070; 87086; 87205; 87476; 87798; 89051; 96365; 99283; A9270-GY; J0696; J3370

== ENCOUNTER 2016-11-03 10:07 | Emergency (ER) | payer BC ==
[2016-11-03] MEDS ORDERED: hydrALAZINE IV* 20 MG/ML VIAL IV SLOW PU ONE ×2 (10:47→14:54)
[2016-11-03] MEDS ORDERED: POLYMYXIN B ONE (10:49)
[2016-11-03] MEDS ORDERED: NEOMYCIN ONE (10:49)
[2016-11-03] MEDS ORDERED: GRAMICIDIN ONE (10:49)
--- NOTE | 2016-11-03 11:31 | ED ---
Throat Pain/Nasal Congestion - HPI Summary HPI Summary: Pt here w/ epistaxis which started this morning around 7 am once he got to work. Pinched his nose for about 10 minutes and bleeding stopped. Shoved tissue paper up into his nare and bleeding was controlled until 2 hours later -started bleeding again so work rewuested he seek medical attention. He reports this happens from time to time (moreso in the winter months) but he is able to control it on his own with pressure. He did have some blood go into back of his throat and probably swallowed some - no trouble breathing or swallowing at present as bleeding has subsided since pressure to nares for 20+ minutes. Denies nausea, vomiting, chest pain, SOB, GREGG, visual change, ear pain/pressure or fullness. Denies using anti-coagulants and does not take ASA. Has HTN for which he takes nefedipine (he believes). Admits to taking anti-histamine this morning in an effort to preventatively treat his allergies as he planned to mow lawn this afternoon. Denies use of any stimulants otherwise. - History of Current Complaint Chief Complaint: EDEpistaxis Time Seen by Provider: 11/03/16 10:38 Hx Obtained From: Patient - Allergies/Home Medications Allergies/Adverse Reactions: Allergies Allergy/AdvReac Type Severity Reaction Status Date / Time JITENDRA Inhibitors Allergy Rash Verified 11/04/16 05:22 PMH/Surg Hx/FS Hx/Imm Hx Previously Healthy: Yes Endocrine/Hematology History: Reports: Hx Blood Disorders - erythrocytosis (Dr. Rangel) Denies: Hx Diabetes, Hx Thyroid Disease, Hx Unexplained Bleeding, Autoimmune Disease Cardiovascular History: Reports: Hx Hypertension - controlled w/ meds Denies: Hx Pacemaker/ICD Respiratory History: Reports: Hx Sleep Apnea - uses O2 at night Denies: Hx Asthma, Hx Chronic Obstructive Pulmonary Disease (COPD) GI History: Reports: Hx Gall Bladder Disease - cholecystectomy Denies: Hx Ulcer Musculoskeletal History: Reports: Hx Back Problems - pain, Other Musculoskeletal History - knee pain Sensory History: Reports: Hx Contacts or Glasses Denies: Hx Hearing Aid Opthamlomology History: Reports: Hx Contacts or Glasses Psychiatric History: Denies: Hx Panic Disorder - Surgical History Surgery Procedure, Year, and Place: Gallbladdder 15 years ago. Tonsils 10 years ago Infectious Disease History: No Infectious Disease History: Denies: Hx Clostridium Difficile, Hx Hepatitis, Hx Human Immunodeficiency Virus (HIV), Hx of Known/Suspected MRSA, Hx Shingles, Hx Tuberculosis, Hx Known/ Suspected VRE, Hx Known/Suspected VRSA, History Other Infectious Disease, Traveled Outside the [place] in Last 30 Days - Family History Known Family History: Positive: Hypertension, Diabetes - Social History Occupation: Employed Full-time Lives: With Family Alcohol Use: Occasionally Hx Substance Use: No Substance Use Type: Reports: None Hx Tobacco Use: No Smoking Status (MU): Never Smoked Tobacco Review of Systems Constitutional: Negative Negative: Fever, Chills, Fatigue Eyes: Negative Negative: Photophobia, Blurred Vision, Diplopia Positive: Nasal Discharge - see HPI. Negative: Sore Throat, Ear Ache Cardiovascular: Negative Negative: Palpitations, Chest Pain Respiratory: Negative Negative: Shortness Of Breath, Cough Gastrointestinal: Negative Negative: Abdominal Pain, Vomiting, Diarrhea, Nausea Positive: no symptoms reported Skin: Negative Neurological: Negative Positive: Anxious All Other Systems Reviewed And Are Negative: Yes Physical Exam Triage Information Reviewed: Yes Vital Signs On Initial Exam: Initial Vitals Temp Pulse Resp BP Pulse Ox 97.7 F 63 20 165/100 95 11/03/16 10:15 11/03/16 10:15 11/03/16 10:15 11/03/16 10:15 11/03/16 10:15 Vital Signs Reviewed: Yes Appearance: Positive: Well-Appearing, No Pain Distress - appears concerned but denies pain, Well-Nourished Skin: Positive: Warm, Dry Head/Face: Positive: Normal Head/Face Inspection Eyes: Positive: Normal, EOMI, Conjunctiva Clear. Negative: Conjunctiva Inflammed, Discharge ENT: Positive: Hearing grossly normal, Nasal drainage - BRB - controlled w/ pressure in place Respiratory/Lung Sounds: Positive: Clear to Auscultation, Breath Sounds Present Cardiovascular: Positive: Normal, RRR, S1, S2 Musculoskeletal: Positive: Normal, Strength/ROM Intact Neurological: Positive: Normal, Sensory/Motor Intact, Alert, Oriented to Person Place, Time, CN Intact II-III Psychiatric: Positive: Anxious - but consolable Procedures - Procedure Summary Procedure Summary: Nares occluded B/L w/ neosynephrine soaked gauze - upon removal, Lt septal area w/ bleeding but pt also continues to have pharyngeal blood and cannot see past middle turbiate - inserted lidocaine gel and after soaking 7.5cm rihno rocket in sterile saline, inserted into Lt nare - inflated w/ 20cc as 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 No other signs of bleeding from Lt nare, Rt nare or oropharynx Diagnostics - Vital Signs Vital Signs Temp Pulse Resp BP Pulse Ox 11/03/16 11:22 64 150/101 97 11/03/16 11:00 69 155/94 93 11/03/16 10:30 61 152/97 93 11/03/16 10:17 64 96 11/03/16 10:15 97.7 F 63 20 165/100 95 - Laboratory Result Diagrams: 11/03/16 11:25 11/03/16 11:25 Lab Statement: Any lab studies that have been ordered have been reviewed, and results considered in the medical decision making process. Re-Evaluation - Re-Evaluation First Eval Change: Improved EENT Course/Dx - Course Course Of Treatment: Suspect posterior Lt sided epistaxis after cleaning B/L nares and seeing BRB in Lt nare - no apparent course and w/ pharyngeal bleeding after cleaning and head forward. Discussed w/ Dr. Hess - okay to insert rhino rocket - reviewed structural steel shop supervisor's instructions and advised 20cc of air - deflated balloon by 5 cc and adjusted more anteriorly after intial vasovagal as rocket appeared to be too far posterior and pt had throat fullness/discomfort - improved throat sx after and pt showed he could drink not only water but also take pills w/o difficulty - reported much more comfortable. Pt in stable condition w/ improved BP. Advised avoiding anti-histamines and f/u w/ ENT in 2- 3 days (spoke w/ Dr. Kwon). Follow-up with PCP re: BP. Was provide norco and anbx here today. Reviewed danger s/sx of when to return to ED. Pt and agree w/ plan. - Diagnoses Provider Diagnoses: Left-sided epistaxis, Hypertension Discharge - Discharge Plan Condition: Stable Disposition: HOME Prescriptions: Amoxicillin/Clavulanate TAB* [Augmentin TAB 875*] 875 mg PO BID #19 tab HYDROcodone/ACETAMIN 5-325 MG* [Hinton 5-325 TAB*] 1 tab PO Q6H PRN #20 tab MDD 4 PRN Reason: Pain Patient Education Materials: Nosebleed (ED), Hypertension (ED) Forms: *Work Release Referrals: Milton Ford MD [Primary Care Provider] - Siva Kwon MD [Medical Doctor] - Additional Instructions: Keep rhino rocket in place until seen by ENT - call today to schedule appointment tomorrow. Complete antibiotics as directed. Use pain medication as directed. This may lower your blood pressure and cause drowsiness - do not drive machinery while taking. Avoid using medication that can elevate your blood pressure. Specifically, anti- histamines and decongestants. Basic information provided here today but you may also follow-up with your PCP and/or pharmacist for further information on this. Follow-up with your PCP to recheck your BP - call today to schedule an appointment tomorrow. *If you develop chest pain, shortness of breath, return to ED Avoid "blood thinning" medications - aspirin, advil, ibuprofen, aleve, naproxen. Follow-up with ENT specialist in 2-3 days. Call today to schedule an appointment. *If you develop return of bleeding, fever, chills, eye pain, headache, vomiting , return to ED
[2016-11-03 11:32] LABS: Hematocrit 46 % (42-52); Hemoglobin 15.9 g/dl (14.0-18.0); Mean Corpuscular HGB Conc 34 g/dl (31-36); Mean Corpuscular Hemoglobin 29 pg (27-31); Mean Corpuscular Volume 85 fL (80-94); Mean Platelet Volume 8 um3 (7.4-10.4); Red Blood Count 5.46 10^6/ul (4.0-5.4); Red Cell Distribution Width 13 % (10.5-15); White Blood Count 8.8 10^3/ul (3.5-10.8)
[2016-11-03 11:50] LABS: Albumin 4.1 g/dL (3.2-5.2); BUN/Creatinine Ratio 12.3 (8-20); EGFR African American 130.3 (>60); EGFR Non-African American 101.3 (>60); Globulin 2.7 g/dL (2-4); Potassium 3.3 mmol/L (3.5-5.0); Total Bilirubin 1.2 mg/dL (0.2-1.0); Total Protein 6.8 g/dL (6.4-8.9)
[2016-11-03] MEDS ORDERED: Phenylephrine 1% NASAL* 15 ML BOT BOTH NARES PRN (14:32)
[2016-11-03] MEDS ORDERED: Potassium Chlor TAB* 20 MEQ TAB.ER PO ONE (14:33)
[2016-11-03] MEDS ORDERED: Phenylephrine 0.5% NASAL* BTL ONE (14:41)
[2016-11-03] MEDS ORDERED: Lidocaine 4% GEL* 10 GM TUBE TOPICAL ONE (14:54)
[2016-11-03] MEDS ORDERED: Morphine INJ* 4 MG/ML 1 ML CARPUJECT IV ONE (15:12)
[2016-11-03] MEDS ORDERED: Ondansetron INJ* 2 MG/ML VIAL IV ONE ×2 (15:12→16:44)
[2016-11-03] MEDS ORDERED: Amoxicillin/Clavulanate TAB* 875 MG PO ONE (16:29)
[2016-11-03] MEDS ORDERED: HYDROcodone/ACETAMIN 5-325 MG* 1 TAB PO ONE (16:44)
[2016-11-03 17:02] VITALS: BP 156/99
== END 2016-11-03 17:02 | disposition home or self-care (01) ==
LOC: ED 10:07
DX: R04.0 Epistaxis (principal); I10 Essential (primary) hypertension
CPT/HCPCS: 30905; 36415; 80053; 85025; 85610; 85730; 96374; 96375; 99284; A9270-GY; J0360; J2270; J2405

== ENCOUNTER 2016-11-04 05:18 | Emergency (ER) | payer BC ==
[2016-11-04] MEDS ORDERED: NS 0.9% 1000 ML* 1,000 ML IV ONE (07:25)
[2016-11-04] MEDS ORDERED: Lidocaine 4% TOPICAL* 50 ML TOP.SOLN TOPICAL ONE (07:59)
[2016-11-04] MEDS ORDERED: Oxymetazoline 0.05% NASAL SPR* 15 ML BTL BOTH NARES ONE (08:00)
[2016-11-04] MEDS ORDERED: Lidocaine 1% INJ* 10 MG/ML 30 ML SDV ONE (08:00)
[2016-11-04] MEDS ORDERED: Silver Nitrate/Potassium Nitr* 1 EA STICK TOPICAL ONE (08:00)
[2016-11-04] MEDS ORDERED: Lidocaine 4% TOPICAL* 50 ML TOP.SOLN ONE (08:01)
[2016-11-04] MEDS ORDERED: Oxymetazoline 0.05% NASAL SPR* 15 ML BTL ONE (08:02)
[2016-11-04 08:05] LABS: Hematocrit 46 % (42-52); Hemoglobin 15.9 g/dl (14.0-18.0); Mean Corpuscular HGB Conc 34 g/dl (31-36); Mean Corpuscular Hemoglobin 29 pg (27-31); Mean Corpuscular Volume 85 fL (80-94); Mean Platelet Volume 8 um3 (7.4-10.4); Red Blood Count 5.46 10^6/ul (4.0-5.4); Red Cell Distribution Width 13 % (10.5-15); White Blood Count 11.5 10^3/ul (3.5-10.8)
[2016-11-04] MEDS ORDERED: Silver Nitrate/Potassium Nitr* 1 EA STICK ONE (08:05)
[2016-11-04 08:12] LABS: Albumin 4.4 g/dL (3.2-5.2); BUN/Creatinine Ratio 10.3 (8-20); C Reactive Protein 2.81 mg/L (< 5.00); EGFR African American 105.8 (>60); EGFR Non-African American 82.3 (>60); Globulin 2.7 g/dL (2-4); Potassium 3.4 mmol/L (3.5-5.0); Total Protein 7.1 g/dL (6.4-8.9)
[2016-11-04 09:03] VITALS: BP 149/97
--- NOTE | 2016-11-04 10:53 | CONS ---
ER CONSULTATION REPORT: DATE OF CONSULT: 11/04/16 REASON FOR CONSULT: Emergency room consultation with epistaxis is the diagnosis. HISTORY OF PRESENT ILLNESS: The patient initially presented to the emergency room yesterday with left-sided nosebleed, a Rhino Rocket single balloon pack was placed. He seemed to do well, but came back with more bleeding in front where the pack was placed. I was called for treatment. The patient is being treated for hypertension, otherwise is healthy without any significant medical problems. He is not on any blood thinners or aspirin. PHYSICAL EXAMINATION: He has some blood around his nostril. A balloon pack coming out of the left nostril and some blood in his oropharynx. The balloon was let down, the pack was removed and his nose was packed with oxymetazoline and 4% lidocaine, this was removed. I think I found the bleeding site on the left anterior septum, a little more posterior than normal in a crease that he has were his septum is buckled, but this was right in front of where the balloon pack had been placed. So makes sense that with that in he was bleeding more anteriorly today. Silver nitrate was used and I was able to get it actively bleeding, which was controlled with treatment. ASSESSMENT: The patient was treated with silver nitrate for left-sided epistaxis. RECOMMENDATIONS: We are going to give him a remainder of the oxymetazoline sprays sprayed in nose as needed for bleeding, soak a cotton ball and place it. We are going to give him some antibiotic packets to use twice a day to cover the scab that is used as a moisturizer. He will get a scab that might lift off in 5 to 7 days with some bleeding that is normal. If he has recurrent significant epistaxis, he has been informed to call the office for treatment. [id number]/[facility] #: [id number] KRYS
[2016-11-05 20:21] LABS: Direct Bilirubin 0.3 mg/dL (0.03-0.18); Indirect Bilirubin 1.7 mg/dL (0.3-1.0)
--- NOTE | 2016-11-07 05:48 | ED ---
Magrot Gupta Alfonso, scribed for Josesito Serrano MD on 11/04/16 at 0621 . Complex/Multi-Sys Presentation <Teetee Dias - Last Filed: 11/04/16 08:23> - HPI Summary HPI Summary: This patient is a 51 year old M presenting to [facility] accompanied by with a chief complaint of epistaxis since 0430 this morning. He currently has a rhino rocket in his left nare. The patient rates the pain 0/10 in severity. Symptoms aggravated by nothing. Symptoms alleviated by nothing. He denies recent changes in his HTN medications. PMHx includes HTN. - History Of Current Complaint Hx Obtained From: Patient Onset/Duration: Sudden Onset, Lasting Minutes - 0430, Still Present Timing: Constant Severity Currently: Mild Aggravating Factor(s): nothing Alleviating Factor(s): nothing <Josesito Serrano - Last Filed: 11/07/16 05:48> - History Of Current Complaint Chief Complaint: EDEpistaxis Time Seen by Provider: 11/04/16 06:09 - Allergies/Home Medications Allergies/Adverse Reactions: Allergies Allergy/AdvReac Type Severity Reaction Status Date / Time JITENDRA Inhibitors Allergy Rash Verified 11/05/16 20:41 PMH/Surg Hx/FS Hx/Imm Hx Endocrine/Hematology History: Reports: Hx Blood Disorders - erythrocytosis (Dr. Rangel) Denies: Hx Diabetes, Hx Thyroid Disease, Hx Unexplained Bleeding Cardiovascular History: Reports: Hx Hypertension - controlled w/ meds Denies: Hx Pacemaker/ICD Respiratory History: Reports: Hx Sleep Apnea - uses O2 at night Denies: Hx Asthma, Hx Chronic Obstructive Pulmonary Disease (COPD) GI History: Reports: Hx Gall Bladder Disease - cholecystectomy Denies: Hx Ulcer Musculoskeletal History: Reports: Hx Back Problems - pain, Other Musculoskeletal History - knee pain Sensory History: Reports: Hx Contacts or Glasses Denies: Hx Hearing Aid Opthamlomology History: Reports: Hx Contacts or Glasses Psychiatric History: Denies: Hx Panic Disorder - Surgical History Surgery Procedure, Year, and Place: Gallbladdder 15 years ago. Tonsils 10 years ago Infectious Disease History: No Infectious Disease History: Denies: Hx Clostridium Difficile, Hx Hepatitis, Hx Human Immunodeficiency Virus (HIV), Hx of Known/Suspected MRSA, Hx Shingles, Hx Tuberculosis, Hx Known/ Suspected VRE, Hx Known/Suspected VRSA, History Other Infectious Disease, Traveled Outside the [place] in Last 30 Days - Family History Known Family History: Positive: Hypertension, Diabetes - Social History Alcohol Use: Occasionally Hx Substance Use: No Substance Use Type: Reports: None Hx Tobacco Use: No Smoking Status (MU): Never Smoked Tobacco <Josesito Serrano - Last Filed: 11/07/16 05:48> Review of Systems Negative: Fever Positive: Epistaxis All Other Systems Reviewed And Are Negative: Yes <Josesito Serrano - Last Filed: 11/07/16 05:48> Physical Exam Vital Signs On Initial Exam: Initial Vitals Temp Pulse Resp BP Pulse Ox 97.6 F 71 16 171/113 99 11/04/16 05:20 11/04/16 05:20 11/04/16 05:20 11/04/16 05:20 11/04/16 05:20 Skin: Positive: Warm, Skin Color Reflects Adequate Perfusion Head/Face: Positive: Normal Head/Face Inspection Eyes: Positive: EOMI ENT: Positive: Other - Dr. Su called down to see patient due to continued bleeding despite consrvative treatments. nasal packing was removed, vessel was seen and cauterized by DR. Su successfully, will follow up as outpatient with Dr. Mendes <Teetee Dias - Last Filed: 11/04/16 08:23> - Summary Physical Exam Summary: General: well-appearing, no pain distress Skin: warm, color reflects adequate perfusion, dry Head: normal Eyes: EOMI, DIAMOND ENT: Intact rhino rocket in his left nare. Dry blood in left nare. Posterior pharynx normal with no blood Neck: supple, nontender Respiratory: CTA, breath sounds present Cardiovascular: RRR Abdomen: soft, nontender Bowel: present Musculoskeletal: normal, strength/ROM intact Neurological: normal, sensory/motor intact, A&O x3 Psychological: Anxious Triage Information Reviewed: Yes Vital Signs On Initial Exam: Initial Vitals Temp Pulse Resp BP Pulse Ox 97.6 F 71 16 171/113 99 11/04/16 05:20 11/04/16 05:20 11/04/16 05:20 11/04/16 05:20 11/04/16 05:20 Vital Signs Reviewed: Yes - Noel Coma Scale Coma Scale Total: 15 <Josesito Serrano - Last Filed: 11/07/16 05:48> Diagnostics - Vital Signs Vital Signs Temp Pulse Resp BP Pulse Ox 11/04/16 07:55 124/79 11/04/16 07:54 69 96 11/04/16 07:30 86 157/102 93 11/04/16 07:18 71 172/108 94 11/04/16 07:00 65 94 11/04/16 06:30 72 146/101 97 11/04/16 06:00 67 160/104 94 11/04/16 05:33 64 97 11/04/16 05:32 160/108 11/04/16 05:20 97.6 F 71 16 171/113 99 - Laboratory Lab Results: Lab Results 11/04/16 11/04/16 11/04/16 Range/Units 07:50 07:50 07:50 WBC 11.5 H (3.5-10.8) 10^3/ul RBC 5.46 H (4.0-5.4) 10^6/ul Hgb 15.9 (14.0-18.0) g/dl Hct 46 (42-52) % MCV 85 (80-94) fL MCH 29 (27-31) pg MCHC 34 (31-36) g/dl RDW 13 (10.5-15) % Plt Count 335 (150-450) 10^3/ul MPV 8 (7.4-10.4) um3 Neut % (Auto) 70.6 (38-83) % Lymph % (Auto) 20.8 L (25-47) % [place] % (Auto) 7.1 (1-9) % Eos % (Auto) 0.5 (0-6) % Baso % (Auto) 1.0 (0-2) % Absolute Neuts (auto) 8.1 H (1.5-7.7) 10^3/ul Absolute Lymphs (auto) 2.4 (1.0-4.8) 10^3/ul Absolute Monos (auto) 0.8 (0-0.8) 10^3/ul Absolute Eos (auto) 0.1 (0-0.6) 10^3/ul Absolute Basos (auto) 0.1 (0-0.2) 10^3/ul Absolute Nucleated RBC 0.01 10^3/ul Nucleated RBC % 0.1 INR (Anticoag Therapy) 1.07 (0.89-1.11) APTT 27.2 (26.0-36.3) seconds Sodium 136 (133-145) mmol/L Potassium 3.4 L (3.5-5.0) mmol/L Chloride 102 (101-111) mmol/L Carbon Dioxide 24 (22-32) mmol/L Anion Gap 10 (2-11) mmol/L BUN 10 (6-24) mg/dL Creatinine 0.97 (0.67-1.17) mg/dL Est GFR ( Amer) 105.8 (>60) Est GFR (Non-Af Amer) 82.3 (>60) BUN/Creatinine Ratio 10.3 (8-20) Glucose 154 H (70-100) mg/dL Calcium 9.0 (8.6-10.3) mg/dL Total Bilirubin 2.00 H (0.2-1.0) mg/dL AST 24 (13-39) U/L ALT 33 (7-52) U/L Alkaline Phosphatase 62 (34-104) U/L C-Reactive Protein 2.81 (< 5.00) mg/L Total Protein 7.1 (6.4-8.9) g/dL Albumin 4.4 (3.2-5.2) g/dL Globulin 2.7 (2-4) g/dL Albumin/Globulin Ratio 1.6 (1-3) Result Diagrams: 11/04/16 07:50 11/04/16 07:50 Lab Statement: Any lab studies that have been ordered have been reviewed, and results considered in the medical decision making process. <Teetee Dias - Last Filed: 11/04/16 08:23> - Vital Signs Vital Signs Temp Pulse Resp BP Pulse Ox 11/04/16 06:00 67 160/104 94 11/04/16 05:33 64 97 11/04/16 05:32 160/108 11/04/16 05:20 97.6 F 71 16 171/113 99 - Laboratory Lab Results: Lab Results 11/04/16 11/04/16 11/04/16 Range/Units 07:50 07:50 07:50 WBC (3.5-10.8) 10^3/ul RBC (4.0-5.4) 10^6/ul Hgb (14.0-18.0) g/dl Hct (42-52) % MCV (80-94) fL MCH (27-31) pg MCHC (31-36) g/dl RDW (10.5-15) % Plt Count (150-450) 10^3/ul MPV (7.4-10.4) um3 Neut % (Auto) (38-83) % Lymph % (Auto) (25-47) % [place] % (Auto) (1-9) % Eos % (Auto) (0-6) % Baso % (Auto) (0-2) % Absolute Neuts (auto) (1.5-7.7) 10^3/ul Absolute Lymphs (auto) (1.0-4.8) 10^3/ul Absolute Monos (auto) (0-0.8) 10^3/ul Absolute Eos (auto) (0-0.6) 10^3/ul Absolute Basos (auto) (0-0.2) 10^3/ul Absolute Nucleated RBC 10^3/ul Nucleated RBC % INR (Anticoag Therapy) 1.07 (0.89-1.11) APTT 27.2 (26.0-36.3) seconds Sodium 136 (133-145) mmol/L Potassium 3.4 L (3.5-5.0) mmol/L Chloride 102 (101-111) mmol/L Carbon Dioxide 24 (22-32) mmol/L Anion Gap 10 (2-11) mmol/L BUN 10 (6-24) mg/dL Creatinine 0.97 (0.67-1.17) mg/dL Est GFR ( Amer) 105.8 (>60) Est GFR (Non-Af Amer) 82.3 (>60) BUN/Creatinine Ratio 10.3 (8-20) Glucose 154 H (70-100) mg/dL Calcium 9.0 (8.6-10.3) mg/dL Total Bilirubin 2.00 H (0.2-1.0) mg/dL Direct Bilirubin 0.30 H (0.03-0.18) mg/dL Indirect Bilirubin 1.7 H (0.3-1.0) mg/dL AST 24 (13-39) U/L ALT 33 (7-52) U/L Alkaline Phosphatase 62 (34-104) U/L C-Reactive Protein 2.81 (< 5.00) mg/L Total Protein 7.1 (6.4-8.9) g/dL Albumin 4.4 (3.2-5.2) g/dL Globulin 2.7 (2-4) g/dL Albumin/Globulin Ratio 1.6 (1-3) Blood Type A Positive Antibody Screen Negative 11/04/16 Range/Units 07:50 WBC 11.5 H (3.5-10.8) 10^3/ul RBC 5.46 H (4.0-5.4) 10^6/ul Hgb 15.9 (14.0-18.0) g/dl Hct 46 (42-52) % MCV 85 (80-94) fL MCH 29 (27-31) pg MCHC 34 (31-36) g/dl RDW 13 (10.5-15) % Plt Count 335 (150-450) 10^3/ul MPV 8 (7.4-10.4) um3 Neut % (Auto) 70.6 (38-83) % Lymph % (Auto) 20.8 L (25-47) % [place] % (Auto) 7.1 (1-9) % Eos % (Auto) 0.5 (0-6) % Baso % (Auto) 1.0 (0-2) % Absolute Neuts (auto) 8.1 H (1.5-7.7) 10^3/ul Absolute Lymphs (auto) 2.4 (1.0-4.8) 10^3/ul Absolute Monos (auto) 0.8 (0-0.8) 10^3/ul Absolute Eos (auto) 0.1 (0-0.6) 10^3/ul Absolute Basos (auto) 0.1 (0-0.2) 10^3/ul Absolute Nucleated RBC 0.01 10^3/ul Nucleated RBC % 0.1 INR (Anticoag Therapy) (0.89-1.11) APTT (26.0-36.3) seconds Sodium (133-145) mmol/L Potassium (3.5-5.0) mmol/L Chloride (101-111) mmol/L Carbon Dioxide (22-32) mmol/L Anion Gap (2-11) mmol/L BUN (6-24) mg/dL Creatinine (0.67-1.17) mg/dL Est GFR ( Amer) (>60) Est GFR (Non-Af Amer) (>60) BUN/Creatinine Ratio (8-20) Glucose (70-100) mg/dL Calcium (8.6-10.3) mg/dL Total Bilirubin (0.2-1.0) mg/dL Direct Bilirubin (0.03-0.18) mg/dL Indirect Bilirubin (0.3-1.0) mg/dL AST (13-39) U/L ALT (7-52) U/L Alkaline Phosphatase (34-104) U/L C-Reactive Protein (< 5.00) mg/L Total Protein (6.4-8.9) g/dL Albumin (3.2-5.2) g/dL Globulin (2-4) g/dL Albumin/Globulin Ratio (1-3) Blood Type Antibody Screen Result Diagrams: 11/04/16 07:50 11/04/16 07:50 Lab Statement: Any lab studies that have been ordered have been reviewed, and results considered in the medical decision making process. <Josesito Serrano - Last Filed: 11/07/16 05:48> Complex Multi-Symp Course/Dx Course Of Treatment: Cauterized by Dr. Su. Follow up as outpatient in office this afternoon if necessary. Follow up with primary physician with regards to elevated BP and elevated bilirubin - Diagnoses Differential Diagnoses/HQI/PQRI: Other <Teetee Dias - Last Filed: 11/04/16 08:23> - Physician Notifications Discussed Care Of Patient With: Siva Kwon Time Discussed With Above Provider: 07:00 Instructed by Provider To: Other - Consulted Dr. Kwon (ENT) who recommends out patient follow up unless the pt's nose bleeds. <Josesito Serrano - Last Filed: 11/07/16 05:48> - Diagnoses Provider Diagnoses: Epistaxis not due to trauma Discharge <Teetee Disa - Last Filed: 11/04/16 08:23> <Joseisto Serrano - Last Filed: 11/07/16 05:48> - Discharge Plan Condition: Improved Disposition: HOME Prescriptions: Oxymetazoline 0.05% NASAL SPR* [Afrin 0.05% NASAL SPRAY*] 1 spray NASAL Q3H PRN #1 btl PRN Reason: nose bleed Patient Education Materials: Nosebleed (ED) Forms: *Work Release Referrals: Alejandro Su MD [Medical Doctor] - (Follow up in office this afternoon if increased bleeding ) Milton Ford MD [Primary Care Provider] - (Follow up within 1-4 days for blood pressure check and to review blood work- elevated bilirubin ) Additional Instructions: - Afrin nasal spray with cotton packing if bleeding continues - Follow up with Dr Su in his office if bleeding continues - Avoid blowing nose, picking nose. gentle sniffs oK - Return to Dr. Perez office this afternoon if bleeding continues - FOllow up with primary with regards to elevated blood pressure and elevated bilirubin The documentation as recorded by the Margot perdomo Alfonso accurately reflects the service I personally performed and the decisions made by me, Josesito Serrano MD.
== END 2016-11-04 09:13 | disposition home or self-care (01) ==
LOC: ED 05:18
DX: R04.0 Epistaxis (principal); Z86.79 Personal history of other diseases of the circulatory system
CPT/HCPCS: 36415; 80053; 82247; 82248; 85025; 85610; 85730; 86140; 86850; 86900; 86901; 96360; 99283; A9270-GY; J2001

== ENCOUNTER 2016-11-05 20:28 | Emergency (ER) | payer BC ==
[2016-11-06] MEDS ORDERED: Lidocaine 2% JELLY* 6 ML JELLY TOPICAL ONE ×2 (00:29→01:39)
[2016-11-06] MEDS ORDERED: Phenylephrine 0.5% NASAL* BTL ONE (00:29)
[2016-11-06] MEDS ORDERED: Silver Nitrate/Potassium Nitr* 1 EA STICK ONE (00:29)
[2016-11-06] MEDS ORDERED: Amoxicillin/Clavulanate TAB* 875 MG PO ONE (01:10)
[2016-11-06] MEDS ORDERED: Silver Nitrate/Potassium Nitr* 1 EA STICK TOPICAL ONE (01:39)
[2016-11-06 01:43] VITALS: BP 144/103
--- NOTE | 2016-11-06 03:56 | ED ---
Joshua Gupta Rebecca, scribed for Laura Stevenson MD on 11/05/16 at 2334 . Throat Pain/Nasal Congestion - HPI Summary HPI Summary: Pt is a 51 y/o M who presents to ED c/o epistaxis. Sx began 2 days ago and have been intermittent since onset, with 2 episodes of Wednesday, 1 on Wednesday and 1 today. Sx began on Wednesday at 1700 while at work. After 2 episodes he went to the ED and returned yesterday during which Dr. Su came, inserted a rhino rocket and did a cauterization. Sx returned today, BEATER HEAD, and he sprayed Afrin on a cotton ball and inserted it into the nare, prior to coming to the ED. Pt reports that he has been spitting up blood secondary to the bleeding. Is not on blood thinners or ASA. No prior issues with nose bleeds. - History of Current Complaint Chief Complaint: EDEpistaxis Time Seen by Provider: 11/05/16 22:57 Hx Obtained From: Patient Onset/Duration: Lasting Days - 2 days Associated Signs And Symptoms: Positive: Negative Cough: None - Allergies/Home Medications Allergies/Adverse Reactions: Allergies Allergy/AdvReac Type Severity Reaction Status Date / Time JITENDRA Inhibitors Allergy Rash Verified 11/05/16 20:41 PMH/Surg Hx/FS Hx/Imm Hx Endocrine/Hematology History: Reports: Hx Blood Disorders - erythrocytosis (Dr. Rangel) Denies: Hx Diabetes, Hx Thyroid Disease, Hx Unexplained Bleeding Cardiovascular History: Reports: Hx Hypertension - controlled w/ meds Denies: Hx Pacemaker/ICD Respiratory History: Reports: Hx Sleep Apnea - uses O2 at night Denies: Hx Asthma, Hx Chronic Obstructive Pulmonary Disease (COPD) GI History: Reports: Hx Gall Bladder Disease - cholecystectomy Denies: Hx Ulcer Musculoskeletal History: Reports: Hx Back Problems - pain, Other Musculoskeletal History - knee pain Sensory History: Reports: Hx Contacts or Glasses Denies: Hx Hearing Aid Opthamlomology History: Reports: Hx Contacts or Glasses Psychiatric History: Denies: Hx Panic Disorder - Surgical History Surgery Procedure, Year, and Place: Gallbladdder 15 years ago. Tonsils 10 years ago Infectious Disease History: No Infectious Disease History: Denies: Hx Clostridium Difficile, Hx Hepatitis, Hx Human Immunodeficiency Virus (HIV), Hx of Known/Suspected MRSA, Hx Shingles, Hx Tuberculosis, Hx Known/ Suspected VRE, Hx Known/Suspected VRSA, History Other Infectious Disease, Traveled Outside the [place] in Last 30 Days - Family History Known Family History: Positive: Hypertension, Diabetes - Social History Alcohol Use: Occasionally Hx Substance Use: No Substance Use Type: Reports: None Hx Tobacco Use: No Smoking Status (MU): Never Smoked Tobacco Review of Systems Negative: Fever Positive: Epistaxis - Resolved All Other Systems Reviewed And Are Negative: Yes Physical Exam - Summary Physical Exam Summary: General: Well appearing, no pain distress Skin: Warm, Skin Color Reflects Adequate Perfusion, Dry Eyes: EOMI, DIAMOND ENT: Pharynx normal, TMs normal, Dried blood in the pharynx with no active bleeding Neck: Supple, nontender Respiratory: CTA, breath sounds present, no rhonchi, no wheezes, no rales Cardiovascular: RRR, no murmur, no rub, no gallop Abdomen: Soft, nontender, Non-distended, no guarding, no rebound Bowel: Present Musculoskeletal: GILBERTO, No edema Neuro: Sensory/motor intact, A&Ox3, CN intact 2-12 Psych: Affect/mood appropriate Triage Information Reviewed: Yes Vital Signs On Initial Exam: Initial Vitals Temp Pulse Resp BP Pulse Ox 98.5 F 77 14 167/112 96 11/05/16 20:38 11/05/16 20:38 11/05/16 20:38 11/05/16 20:38 11/05/16 20:38 Vital Signs Reviewed: Yes Procedures - Procedure Summary Procedure Summary: left nare anesthesized iwth a cotton ball soaked in neosynephrine and lidocaine small area of blood noted in anterior of kisselbachs triangle this area cauterized Diagnostics - Vital Signs Vital Signs Temp Pulse Resp BP Pulse Ox 11/05/16 22:14 98.0 F 65 12 157/108 98 11/05/16 20:38 98.5 F 77 14 167/112 96 - Laboratory Lab Statement: Any lab studies that have been ordered have been reviewed, and results considered in the medical decision making process. Re-Evaluation - Re-Evaluation First Eval Re-Evaluation Time: 01:10 Comment: Pt has continued to not actively bleed, but has experineced some green discharge. EENT Course/Dx - Course Course Of Treatment: 51 yo male with recurrent epistaxis and increased mucus output. area of epistaxis found and re-cauterized and pt placed on augmentin for likely sinusitis - Diagnoses Provider Diagnoses: Sinusitis, Epistaxis Discharge - Discharge Plan Condition: Stable Disposition: HOME Prescriptions: Amoxicillin/Clavulanate TAB* [Augmentin TAB 875*] 875 mg PO BID #20 tab Patient Education Materials: Sinusitis (ED), Nosebleed (ED) Referrals: Milton Ford MD [Primary Care Provider] - 3 Days The documentation as recorded by the Joshua perdomo Rebecca accurately reflects the service I personally performed and the decisions made by , Laura Stevenson MD.
== END 2016-11-06 01:43 | disposition home or self-care (01) ==
LOC: ED 20:28
DX: R04.0 Epistaxis (principal); J32.9 Chronic sinusitis, unspecified; I10 Essential (primary) hypertension; G47.30 Sleep apnea, unspecified
CPT/HCPCS: 30901; 99282; A9270-GY

== ENCOUNTER 2016-11-06 05:20 | Emergency (ER) | payer BC ==
[2016-11-06 05:27] VITALS: BP 158/100
[2016-11-06] MEDS ORDERED: Phenylephrine 0.5% NASAL* BTL ONE (06:41)
[2016-11-06] MEDS ORDERED: Oxymetazoline 0.05% NASAL SPR* 15 ML BTL ONE (07:28)
[2016-11-06] MEDS ORDERED: Lidocaine 4% TOPICAL* 50 ML TOP.SOLN ONE (07:28)
[2016-11-06] MEDS ORDERED: Silver Nitrate/Potassium Nitr* 1 EA STICK ONE (07:28)
--- NOTE | 2016-11-06 13:39 | CONS ---
CONSULTATION NOTE: DATE OF CONSULT: 11/06/16 REASON FOR CONSULT: ER consultation for epistaxis. HISTORY OF PRESENT ILLNESS: The patient says that last night he was doing well , then started sneezing and he started bleeding again, initially packed with the Bolivar-Synephrine that was supplied the last time he was here and then it started coming around the back to the right side and he came to the emergency room. He sat here for a number of hours, went home, started bleeding again and returned and now he has called for treatment. PHYSICAL EXAMINATION: He has a scabbing on the left anterior septum, but it appears the scab came off where I had previous cauterized. Dr. Stevenson had packed with some Bolivar-Synephrine. I removed those packs prior to my exam and then I repacked with some oxymetazoline and 4% lidocaine, after several minutes removed these and I performed endoscopy with a flexible endoscope. No other bleeding sites were seen within either side of his nasal cavity or nasopharynx other than this area on the septum that was bleeding. I re-cauterized but because this was a recurrent problem, I put an 8 cm Merocel in that I had smeared with some antibiotic ointment and then sprayed it with Bolivar -Synephrine to expand. ASSESSMENT: The patient has had recurring epistaxis, I think this time was secondary to the scab coming off his previous cautery site. I re-cauterized but packed with a Merocel pack. RECOMMENDATION: He had previously been prescribed antibiotics. He will start those and he will follow up with me on Wednesday for packing removal and I have given him my numbers to call for followup or for further problems. [id number]/[facility] #: [id number] KRYS
--- NOTE | 2016-11-06 18:22 | ED ---
Walt Gupta Angela, scribed for Morales Flores MD on 11/06/16 at 0815 . Progress - Progress Note Progress Note: Pt is a 51 y/o M who presents to ED c/o intermittent epistaxis x2 days. He reports he had 2 episodes 3 days ago on Wednesday, 1 episode 2 days ago on Wednesday, and 1 last yesterday. This pt was signed out by Dr. Stevenson, pending disposition, awaiting evaluation from Dr. Su. Pt will be discharged to home in stable condition with diagnosis of epistaxis. Re-Evaluation - Re-Evaluation First Eval Re-Evaluation Time: 07:35 Comment: On examination, pt has epistaxis. Pt is waiting for Dr. Su, ENT. Course/Dx - Course Course Of Treatment: Pt is a 51 y/o M who presents to ED c/o intermittent epistaxis x2 days. He reports he had 2 episodes 3 days ago on Wednesday, 1 episode 2 days ago on Wednesday, and 1 last yesterday. This pt was signed out by Dr. Stevenson, pending disposition, awaiting evaluation from Dr. Su. The pt was seen Dr. Su in the ED. He cauterized the epistaxis and now the pts bleeding has stopped. Therefore, he recommends for the pt to be discharged home and follow up in his office on Wednesday. Pt is hemodynamically stable, alert and oriented x3. - Diagnoses Provider Diagnoses: Epistaxis The documentation as recorded by the Walt perdomo Angela accurately reflects the service I personally performed and the decisions made by , Morales Flores MD.
== END 2016-11-06 08:25 | disposition home or self-care (01) ==
LOC: ED 05:20
DX: R04.0 Epistaxis (principal)
CPT/HCPCS: 99282; A9270-GY

== ENCOUNTER 2017-09-20 18:01 | Emergency (ER) | payer BC ==
[2017-09-20] MEDS ORDERED: Ketorolac INJ* 30 MG/ML 1 ML VIAL IV PUSH ONE (20:36)
[2017-09-20] MEDS ORDERED: Meclizine TAB* 12.5 MG PO ONE (20:37)
[2017-09-20] MEDS ORDERED: Metoclopramide IV* 5 MG/ML 2 ML VIAL IV SLOW PU ONE (20:37)
[2017-09-20 21:07] LABS: ABS Basophils 0.1 10^3/ul (0-0.2); ABS Eosinophils 0.2 10^3/ul (0-0.6); ABS Lymphocytes 2.4 10^3/ul (1.0-4.8); ABS Monocytes 0.7 10^3/ul (0-0.8); ABS Neutrophils 6.4 10^3/ul (1.5-7.7); ABS Nucleated RBC 0 10^3/ul; Hematocrit 49 % (42-52); Hemoglobin 16.8 g/dl (14.0-18.0); Lymphocyte % 24.9 % (25-47); Mean Corpuscular HGB Conc 35 g/dl (31-36); Mean Corpuscular Hemoglobin 29 pg (27-31); Mean Corpuscular Volume 85 fL (80-94); Nucleated Red Blood Cells % 0.3; Platelet Count 264 10^3/ul (150-450); Red Blood Count 5.72 10^6/ul (4.00-5.40); Red Cell Distribution Width 13 % (10.5-15); White Blood Count 9.8 10^3/ul (3.5-10.8)
[2017-09-20 21:16] LABS: INR 1.03 (0.77-1.02)
[2017-09-20 21:28] LABS: EGFR Non-African American 97.1 (>60)
--- NOTE | 2017-09-20 21:28 | ED ---
Headache - HPI Summary HPI Summary: This is scribe Lance Santacruz documenting for attending Louie Amaro MD. A 51 y/o male presents to ED c/o headache and dizziness reaching 3/10 in severity. Currently, the patient has no dizziness now, but does have a headache. 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 According to the patient, he was referred from his MD to go to , then referred from [facility] to come to [facility] for CAT scan. The patient stated that he would like a CAT scan done has he has a headache and dizziness that started on Wednesday afternoon. He describes the dizziness as room- spinning. Additionally when he got up from bed to go to the restroom, he lost his balance and fell. Pt denies any LOC and nausea. PMHx of HBP (take BP meds everyday at [id number]). Additional PMHx of Tonsillectomy and gallbladder surgery. Patient took no medications for symptoms. I, Dr. Amaro, personally performed the services described in this documentation as scribed in my presence and it is both accurate and complete. - History Of Current Complaint Chief Complaint: EDHeadache Stated Complaint: HEADACHE/DIZZY Time Seen by Provider: 09/20/17 20:27 Hx Obtained From: Patient Onset/Duration: Sudden Onset, Started days ago, Still Present Initially Headache Was: Mild - 3/10 Currently Pain Is: Current Pain Scale(0-10)= - 3/10 Timing: Constant Character: Unable To Describe Radiates to: NO Aggravating Factor: Nothing Allevating Factors: Nothing Associated Signs And Symptoms: Dizziness - Allergies/Home Medications Allergies/Adverse Reactions: Allergies Allergy/AdvReac Type Severity Reaction Status Date / Time MS JITENDRA Inhibitors Allergy Rash Verified 09/20/17 18:13 [JITENDRA Inhibitors] PMH/Surg Hx/FS Hx/Imm Hx Endocrine/Hematology History: Reports: Hx Blood Disorders - erythrocytosis (Dr. Rangel) Denies: Hx Diabetes, Hx Thyroid Disease, Hx Unexplained Bleeding Cardiovascular History: Reports: Hx Hypertension - controlled w/ meds Denies: Hx Pacemaker/ICD Respiratory History: Reports: Hx Sleep Apnea - uses O2 at night Denies: Hx Asthma, Hx Chronic Obstructive Pulmonary Disease (COPD) GI History: Reports: Hx Gall Bladder Disease - cholecystectomy Denies: Hx Ulcer History: Denies: Hx Renal Disease Musculoskeletal History: Reports: Hx Back Problems - pain, Other Musculoskeletal History - knee pain Sensory History: Reports: Hx Contacts or Glasses Denies: Hx Hearing Aid Opthamlomology History: Reports: Hx Contacts or Glasses Psychiatric History: Denies: Hx Panic Disorder - Surgical History Surgery Procedure, Year, and Place: Gallbladdder. Tonsils Infectious Disease History: No Infectious Disease History: Denies: Hx Clostridium Difficile, Hx Hepatitis, Hx Human Immunodeficiency Virus (HIV), Hx of Known/Suspected MRSA, Hx Shingles, Hx Tuberculosis, Hx Known/ Suspected VRE, Hx Known/Suspected VRSA, History Other Infectious Disease, Traveled Outside the [place] in Last 30 Days - Family History Known Family History: Positive: Hypertension, Diabetes - Social History Alcohol Use: Occasionally Hx Substance Use: No Substance Use Type: Reports: None Hx Tobacco Use: No Smoking Status (MU): Never Smoked Tobacco Review of Systems Negative: Fever Negative: Nausea Neurological: Other - POSITIVE: Dizziness; NEGATIVE: LOC Positive: Headache All Other Systems Reviewed And Are Negative: Yes Physical Exam - Summary Physical Exam Summary: VITAL SIGNS: Reviewed. GENERAL: Patient is a well-developed and nourished male who is lying comfortable in the stretcher. Patient is not in any acute respiratory distress. Normal exam. HEAD AND FACE: No signs of trauma. No ecchymosis, hematomas or skull depressions. No sinus tenderness. EYES: PERRLA, EOMI x 2, No injected conjunctiva, no nystagmus. EARS: Hearing grossly intact. Ear canals and tympanic membranes are within normal limits. MOUTH: Oropharynx within normal limits. NECK: Supple, trachea is midline, no adenopathy, no JVD, no carotid bruit, no c- spine tenderness, neck with full ROM. CHEST: Symmetric, no tenderness at palpation LUNGS: Clear to auscultation bilaterally. No wheezing or crackles. CVS: Regular rate and rhythm, S1 and S2 present, no murmurs or gallops appreciated. ABDOMEN: Soft, non-tender. No signs of distention. No rebound no guarding, and no masses palpated. Bowel sounds are normal. EXTREMITIES: FROM in all major joints, no edema, no cyanosis or clubbing. NEURO: Alert and oriented x 3. No acute neurological deficits. Speech is normal and follows commands. SKIN: Dry and warm GCS: 15 Triage Information Reviewed: Yes Vital Signs On Initial Exam: Initial Vitals Temp Pulse Resp BP Pulse Ox 98.3 F 68 18 170/108 93 09/20/17 18:08 09/20/17 18:08 09/20/17 18:08 09/20/17 18:08 09/20/17 18:08 Vital Signs Reviewed: Yes Diagnostics - Vital Signs Vital Signs Temp Pulse Resp BP Pulse Ox 09/20/17 18:08 98.3 F 68 18 170/108 93 - Laboratory Lab Results: Lab Results 09/20/17 09/20/17 09/20/17 Range/Units 21:01 21:01 21:01 WBC 9.8 (3.5-10.8) 10^3/ul RBC 5.72 H (4.00-5.40) 10^6/ul Hgb 16.8 (14.0-18.0) g/dl Hct 49 (42-52) % MCV 85 (80-94) fL MCH 29 (27-31) pg MCHC 35 (31-36) g/dl RDW 13 (10.5-15) % Plt Count 264 (150-450) 10^3/ul MPV 8.0 (7.4-10.4) um3 Neut % (Auto) 65.1 (38-83) % Lymph % (Auto) 24.9 L (25-47) % [place] % (Auto) 7.0 (0-7) % Eos % (Auto) 2.0 (0-6) % Baso % (Auto) 1.0 (0-2) % Absolute Neuts (auto) 6.4 (1.5-7.7) 10^3/ul Absolute Lymphs (auto) 2.4 (1.0-4.8) 10^3/ul Absolute Monos (auto) 0.7 (0-0.8) 10^3/ul Absolute Eos (auto) 0.2 (0-0.6) 10^3/ul Absolute Basos (auto) 0.1 (0-0.2) 10^3/ul Absolute Nucleated RBC 0 10^3/ul Nucleated RBC % 0.3 INR (Anticoag Therapy) 1.03 H (0.77-1.02) APTT 31.5 (26.0-36.3) seconds Sodium 140 (135-145) mmol/L Potassium 3.4 L (3.5-5.0) mmol/L Chloride 103 (101-111) mmol/L Carbon Dioxide 27 (22-32) mmol/L Anion Gap 10 (2-11) mmol/L BUN Pending Creatinine Pending Est GFR ( Amer) Pending Est GFR (Non-Af Amer) Pending BUN/Creatinine Ratio Pending Glucose Pending Calcium 9.6 (8.6-10.3) mg/dL Total Bilirubin 1.40 H (0.2-1.0) mg/dL AST Pending ALT Pending Alkaline Phosphatase Pending Total Protein Pending Albumin 4.6 (3.2-5.2) g/dL Globulin Pending Albumin/Globulin Ratio Pending Result Diagrams: 09/20/17 21:01 09/20/17 21:01 Lab Statement: Any lab studies that have been ordered have been reviewed, and results considered in the medical decision making process. - CT BRAIN CT CT Interpretation Completed By: Radiologist - Normal head/brain CT. ED physician reviewed this radiology report. - EKG 2045 Cardiac Rate: Bradycardia - 57 BPM EKG Rhythm: Sinus Bradycardia EKG Interpretation: Normal axis, normal interval, no ischemic changes. Re-Evaluation - Re-Evaluation First Eval Re-Evaluation Time: 22:13 Change: Improved Comment: Patient is feeling much better and is walking around ED with no issues. Headache Course/Dx - Course Course Of Treatment: A 51 y/o male presents to ED c/o headache and dizziness reaching 3/10 in severity. Currently, the patient has no dizziness now, but does have a headache. A EKG revealed rate of 57 BPM, normal axis, normal interval, no ischemic changes. A Brain CT revealed GCS 15, normal head/brain CT. In the ED course, the patient recieved Klor Con Er Tab, Antivert, Reglan and Toradol. During reevaluation, the patient was feeling better and walking around to ED with no issues. Patient will be discharged with a diagnosis of benign positional vertigo and headache. Patient is to follow up with PCP in 1-2 days. Patient is agreeable with this plan. - Diagnoses Provider Diagnoses: Headache, Benign positional vertigo Discharge - Sign-Out/Discharge Documenting (check all that apply): Patient Departure - DISCHARGE - Discharge Plan Condition: Stable Disposition: HOME Prescriptions: Meclizine TAB* [Antivert 12.5 TAB*] 25 mg PO TID PRN #20 tab PRN Reason: Dizziness Patient Education Materials: Migraine Headache (ED), Vertigo (ED), Dizziness ( ED) Referrals: Milton Ford MD [Primary Care Provider] - 2 Days Additional Instructions: FOLLOW UP WITH PRIMARY CARE IN 1-2 DAYS. TAKE ANTIVERT TAB PRESCRIBED. RETURN TO ED FOR ANY NEW OR WORSENING SYMPTOMS.
--- NOTE | 2017-09-20 21:46 | RAD ---
EXAM: CT Head Without Intravenous Contrast CLINICAL HISTORY: 51 years old, male; Pain; Headache; Other: Frontal/occipital headache since 09/18/2017; Patient HX: Frontal and occipital headache since Wednesday. No trauma, no diplopia or hearing loss; Additional info: H/a TECHNIQUE: Axial computed tomography images of the head/brain without intravenous contrast. All CT scans at this facility use at least one of these dose optimization techniques: automated exposure control; mA and/or kV adjustment per patient size (includes targeted exams where dose is matched to clinical indication); or iterative reconstruction. COMPARISON: No relevant prior studies available. FINDINGS: Brain: Unremarkable. No hemorrhage. No significant white matter disease. No edema. Ventricles: Unremarkable. No ventriculomegaly. Bones/joints: Unremarkable. No acute fracture. Soft tissues: Unremarkable. Sinuses: Unremarkable as visualized. No acute sinusitis. Mastoid air cells: Unremarkable as visualized. No mastoid effusion. IMPRESSION: Normal head/brain CT.
[2017-09-20] MEDS ORDERED: Potassium Chlor TAB* 20 MEQ TAB.ER PO ONE (21:51)
[2017-09-20 22:16] VITALS: BP 147/99
== END 2017-09-20 22:47 | disposition home or self-care (01) ==
LOC: ED 18:01
DX: R51 Headache (principal); H81.10 Benign paroxysmal vertigo, unspecified ear; R00.1 Bradycardia, unspecified; Z88.8 Allergy status to other drugs, medicaments and biological substances; Z79.899 Other long term (current) drug therapy
CPT/HCPCS: 36415; 70450; 80053; 85025; 85610; 85730; 93005; 96374; 96375; 99283; A9270-GY; J1885; J2765

== ENCOUNTER 2018-05-08 08:00 | Emergency (ER) | payer BC ==
[2018-05-08 08:07] VITALS: BP 147/103
--- NOTE | 2018-05-08 08:14 | UC ---
Throat Pain/Nasal Melquiades HPI - HPI Summary HPI Summary: 52 year-old male who has been ill for 6 days with cold symptoms, head congestion , runny nose and now developed sinus pressure in the past 24 hours. - History of Current Complaint Chief Complaint: UCGeneralIllness Stated Complaint: SORE THROAT COUGH CONGESTION Time Seen by Provider: 05/08/18 08:13 Hx Obtained From: Patient Onset/Duration: Gradual Onset Severity: Mild Pain Intensity: 2 Associated Signs & Symptoms: Positive: Sinus Discomfort, Nasal Discharge - Epiglottits Risk Factors Epiglottis Risk Factors: Negative - Allergies/Home Medications Allergies/Adverse Reactions: Allergies Allergy/AdvReac Type Severity Reaction Status Date / Time JITENDRA Inhibitors Allergy Rash Verified 05/08/18 08:07 PMH/Surg Hx/FS Hx/Imm Hx Previously Healthy: Yes Cardiovascular History: Hypertension - Surgical History Surgical History: Yes Surgery Procedure, Year, and Place: Gallbladdder. Tonsils - Family History Known Family History: Positive: Hypertension, Diabetes - Social History Alcohol Use: Occasionally Substance Use Type: None Smoking Status (MU): Never Smoked Tobacco Household Exposure Type: Cigarettes - Immunization History Most Recent Influenza Vaccination: fall 2013 Most Recent Tetanus Shot: current Most Recent Pneumonia Vaccination: never Review of Systems All Other Systems Reviewed And Are Negative: Yes Constitutional: Positive: Fever - Fever early in the course of the illness but not in the past 24 hours ENT: Positive: Sore Throat, Nasal Discharge, Sinus Congestion, Sinus Pain/ Tenderness, Other - Postnasal drainage. Is Patient Immunocompromised?: No Physical Exam Triage Information Reviewed: Yes Appearance: Well-Appearing, No Pain Distress, Well-Nourished Vital Signs: Initial Vital Signs Temp 98.5 F 05/08/18 08:04 Pulse 74 05/08/18 08:04 Resp 16 05/08/18 08:04 BP 147/103 05/08/18 08:04 Pulse Ox 99 05/08/18 08:04 Vital Signs Reviewed: Yes Eye Exam: Normal ENT: Positive: Hearing grossly normal, Nasal congestion, Nasal drainage, TMs normal, Sinus tenderness, Uvula midline, Other - Purulent yellow postnasal drainage and purulent nasal coryza with inflamed turbinates mostly on the left side with left sided maxillary tenderness on palpation.. Negative: Tonsillar swelling, Tonsillar exudate, Trismus, Muffled voice, Hoarse voice Neck exam: Normal Respiratory Exam: Normal Respiratory: Positive: No respiratory distress, No accessory muscle use Cardiovascular Exam: Normal Musculoskeletal Exam: Normal Neurological Exam: Normal Psychological Exam: Normal Skin Exam: Normal Throat Pain/Nasal Course/Dx - Course Course Of Treatment: Patient is comfortable here. Because he's had this for almost 1 week and now has sinus pressure with symptoms suggestive of sinus infection going to treat him with amoxicillin for 10 days. - Differential Dx/Diagnosis Differential Diagnosis/HQI/PQRI: Sinusitis Provider Diagnosis: Sinusitis Discharge - Sign-Out/Discharge Documenting (check all that apply): Patient Departure All imaging exams completed and their final reports reviewed: No Studies - Discharge Plan Condition: Good Disposition: HOME Prescriptions: Amoxicillin PO (*) [Amoxicillin 875 MG (*)] 875 mg PO BID 10 Days #20 tab Patient Education Materials: Sinusitis (ED) Referrals: Milton Ford MD [Primary Care Provider] - Additional Instructions: Increase fluids. Definite follow up with your doctor if no improvement in 4-5 days. - Billing Disposition and Condition Condition: GOOD Disposition: Home - Attestation Statements Provider Attestation: I was available for consult. This patient was seen by the [facility]. The patient was not presented to , seen by or examined by tx -Yefri Liao MD
== END 2018-05-08 08:18 | disposition home or self-care (01) ==
LOC: UCEAST 08:00
DX: J01.90 Acute sinusitis, unspecified (principal); I10 Essential (primary) hypertension; Z88.8 Allergy status to other drugs, medicaments and biological substances; Z77.22 Contact with and (suspected) exposure to environmental tobacco smoke (acute) (chronic)
CPT/HCPCS: 99212; G0463

== ENCOUNTER 2019-01-11 10:24 | Emergency (ER) | payer BC ==
[2019-01-11] MEDS ORDERED: Ketorolac INJ* 30 MG/ML 1 ML VIAL IV PUSH ONE (11:57)
[2019-01-11] MEDS ORDERED: Morphine 4 MG/ML VIAL (1 ml) 4 MG/ML VIAL IV ONE (11:57)
[2019-01-11] MEDS ORDERED: Orphenadrine Citrate IV* 30 MG/ML 2 ML VIAL IV ONE (11:58)
[2019-01-11] MEDS ORDERED: Dexamethasone IV* 4 MG/ML 1 ML (4 MG) IV SLOW PU ONE (11:58)
--- NOTE | 2019-01-11 11:59 | ED ---
Back Pain - HPI Summary HPI Summary: The patient is a 53 y/o M presenting to [facility] with a chief complaint of back pain onset two days ago. He reports that he was shoveling two days ago, and now he is concnered that he pulled a muscle because he is experiencing pain across the lower back and in the right lateral ribs. His pain is rated 8/10 in severity. Movement aggravates the pain, and he has a back support belt for some relief of the pain. He also used Aleve at 0600 this morning to mild relief. He denies any fevers, chills, or urinary or fecal dysfunction. He notes a history of back pain. PMHx: HTN, cholecystectomy, back problems. Nonsmoker, occasional EtOH, no substance use. Medications reviewed. Allergies noted. - History of Current Complaint Chief Complaint: EDBackInjuryPain Stated Complaint: BACK PAIN AND RIGHT SIDE PAIN PER PT Time Seen by Provider: 01/11/19 11:50 Hx Obtained From: Patient Onset/Duration: Sudden Onset, Lasting Days - two, Still Present Onset/Duration: Started Days Ago, Still Present Timing: Lasting Days Back Pain Location: Is Discrete @ - low back, right lateral ribs Severity Initially: Severe Severity Currently: Severe Pain Intensity: 8 Pain Scale Used: 0-10 Numeric Character: Sharp, Aching Aggravating Symptom(s): Movement Alleviating Symptom(s): Rest, OTC Meds - Aleve, Other - back support belt Associated Signs And Symptoms: Negative: Fever, Other - chills, urinary or fecal dysfunction - Allergies/Home Medications Allergies/Adverse Reactions: Allergies Allergy/AdvReac Type Severity Reaction Status Date / Time JITENDRA Inhibitors Allergy Rash Verified 05/08/18 08:07 PMH/Surg Hx/FS Hx/Imm Hx Endocrine/Hematology History: Reports: Hx Blood Disorders - erythrocytosis (Dr. Rangel) Denies: Hx Diabetes, Hx Thyroid Disease, Hx Unexplained Bleeding Cardiovascular History: Reports: Hx Hypertension - on meds Denies: Hx Hypercholesterolemia, Hx Pacemaker/ICD Respiratory History: Reports: Hx Sleep Apnea - uses O2 at night Denies: Hx Asthma, Hx Chronic Obstructive Pulmonary Disease (COPD) GI History: Reports: Hx Gall Bladder Disease - cholecystectomy Denies: Hx Ulcer History: Denies: Hx Renal Disease Musculoskeletal History: Reports: Hx Back Problems - pain, Other Musculoskeletal History - knee pain Sensory History: Reports: Hx Contacts or Glasses Denies: Hx Hearing Aid Opthamlomology History: Reports: Hx Contacts or Glasses Psychiatric History: Denies: Hx Panic Disorder - Surgical History Surgical History: Yes Surgery Procedure, Year, and Place: Gallbladdder. Tonsils Infectious Disease History: No Infectious Disease History: Denies: Hx Clostridium Difficile, Hx Hepatitis, Hx Human Immunodeficiency Virus (HIV), Hx of Known/Suspected MRSA, Hx Shingles, Hx Tuberculosis, Hx Known/ Suspected VRE, Hx Known/Suspected VRSA, History Other Infectious Disease, Traveled Outside the [place] in Last 30 Days - Family History Known Family History: Positive: Hypertension, Diabetes - Social History Alcohol Use: Occasionally Hx Substance Use: No Substance Use Type: Reports: None Hx Tobacco Use: No Smoking Status (MU): Never Smoked Tobacco Review of Systems Negative: Fever, Chills Negative: Other - fecal dysfunction Negative: other - urinary dysfunction Positive: Other - pain across lower back, right lateral rib pain All Other Systems Reviewed And Are Negative: Yes Physical Exam - Summary Physical Exam Summary: VITAL SIGNS: Reviewed. GENERAL: Patient is a well-developed and nourished male who is lying comfortable in the stretcher. Patient is not in any acute respiratory distress. HEAD AND FACE: No signs of trauma. No ecchymosis, hematomas or skull depressions. No sinus tenderness. EYES: PERRLA, EOMI x 2, No injected conjunctiva, no nystagmus. EARS: Hearing grossly intact. Ear canals and tympanic membranes are within normal limits. MOUTH: Oropharynx within normal limits. NECK: Supple, trachea is midline, no adenopathy, no JVD, no carotid bruit, no c- spine tenderness, neck with full ROM. CHEST: Symmetric, no tenderness at palpation. LUNGS: Clear to auscultation bilaterally. No wheezing or crackles. CVS: Regular rate and rhythm, S1 and S2 present, no murmurs or gallops appreciated. ABDOMEN: Soft, non-tender. No signs of distention. No rebound, no guarding, and no masses palpated. Bowel sounds are normal. EXTREMITIES: FROM in all major joints, no edema, no cyanosis or clubbing. BACK: Paraspinal tenderness in the lumbar spine. NEURO: Alert and oriented x 3. No acute neurological deficits. Speech is normal and follows commands. SKIN: Dry and warm. Triage Information Reviewed: Yes Vital Signs On Initial Exam: Initial Vitals Temp Pulse Resp BP Pulse Ox 98.8 F 71 14 160/98 96 01/11/19 10:35 01/11/19 10:35 01/11/19 10:35 01/11/19 10:35 01/11/19 10:35 Vital Signs Reviewed: Yes Procedures - Sedation Patient Received Moderate/Deep Sedation with Procedure: No Diagnostics - Vital Signs Vital Signs Temp Pulse Resp BP Pulse Ox 01/11/19 10:35 98.8 F 71 14 160/98 96 - Laboratory Lab Statement: Any lab studies that have been ordered have been reviewed, and results considered in the medical decision making process. - Radiology Lumbar Spine X-Ray Radiology Interpretation Completed By: Radiologist Summary of Radiographic Findings: Impression: 1. Mild L5-S1 degenerative disc disease. 2. Mild L4-L5 and L5-S1 facet arthropathy. ED physician has reviewed this report. Re-Evaluation - Re-Evaluation First Eval Re-Evaluation Time: 13:00 Change: Improved Comment: His pain has greatly improved with medication. He is able to walk well without pain. We discussed results and plan for discharge. Back Pain Course/Dx - Course Assessment/Plan: This patient is a 53-year-old male who presents to the emergency department with a chief complaint of having low back pain. Patient reports that he was shoveling two days ago, and since then the patient has had back pain. He denies any urinary or fecal dysfunction. In the ED course, the patient was given morphine, Norflex, Toradol, and Decadron. Lumbar x-ray impression: Mild L-S1 degenerative disc disease and mild L4 and L5 and L5 and S1 facet arthropathy. After these medications the patients symptoms have significantly improved. The patient was ambulating his own. Therefore, he will be discharged home with follow-up with primary care physician. Patient did not have any fevers or a history of cancer, so he doesnt have any red flags. At this point, I discussed all the findings and test results with the patient. Patient was instructed to return to the emergency room immediately if any of the symptoms return or worsen. Patient understands and agrees. Patient is able to ambulate freely w/o aid or limp in the ER. Plan of care was discussed with the patient and patient understands and agrees. All questions were answered at patient satisfaction. There were no further complaints or concerns. Neurological exam before discharge: Patient is alert and oriented x 3. No acute neurological deficits. Patient is hemodynamically stable. Patient is to follow up with primary care physician in the next 2 3 days. He understands and agrees. - Diagnoses Differential Diagnosis/HQI/PQRI: Positive: Cauda Equina Syndrome, Compressive Cord Syndrome, Herniated Disc, Strain, Sprain Provider Diagnoses: Acute back pain Discharge ED - Sign-Out/Discharge Documenting (check all that apply): Patient Departure - Patient will be discharged home. - Discharge Plan Condition: Stable Disposition: HOME Prescriptions: HYDROcodone/ACETAMIN 5-325 MG* [[place] 5-325 TAB*] 1 tab PO Q6H PRN #10 tab MDD 4 PRN Reason: Pain - Moderate Ibuprofen TAB* [Motrin TAB* 800 MG] 800 mg PO TID PRN #30 tab PRN Reason: Pain - Mild Methocarbamol TAB* [Robaxin 500 MG TAB*] 500 mg PO TID PRN #12 tab PRN Reason: Spasms - Back methylPREDNISolone [Medrol Dosepak 4 MG*] 0 mg PO .SEE CATARINA INSTRUCTION #1 catarina Patient Education Materials: Back Pain (ED) Referrals: Milton Ford MD [Primary Care Provider] - 3 Days Additional Instructions: Please take medications as prescribed. Follow up with your primary care provider in 2-3 days. Return to the emergency department for any new or worsening symptoms. - Billing Disposition and Condition Condition: STABLE Disposition: Home - Attestation Statements Document Initiated by [place]: Yes Documenting Scribe: Geovanna Sheth Provider For Whom Moises is Documenting (Include Credential): Dr. Morales Flores MD Scribe Attestation: Geovanna Gupta scribed for Dr. Morales Flores MD on 01/13/19 at 0755. Scribe Documentation Reviewed: Yes Provider Attestation: The documentation as recorded by the Geovanna perdomo accurately reflects the service I personally performed and the decisions made by me, Dr. Morales Flores MD Status of Scribe Document: Viewed
[2019-01-11 13:36] VITALS: BP 156/98
== END 2019-01-11 13:20 | disposition home or self-care (01) ==
LOC: ED 10:24
DX: M54.5 Low back pain (principal); R07.81 Pleurodynia; M51.37 Other intervertebral disc degeneration, lumbosacral region; M47.817 Spondylosis without myelopathy or radiculopathy, lumbosacral region; Z88.8 Allergy status to other drugs, medicaments and biological substances; G47.30 Sleep apnea, unspecified; Z99.81 Dependence on supplemental oxygen; I10 Essential (primary) hypertension
CPT/HCPCS: 72100; 96374; 96375; 99282; J1100; J1885; J2270; J2360

== ENCOUNTER 2019-01-18 15:02 | Emergency (ER) | payer BC ==
[2019-01-18 15:17] VITALS: BP 137/96
--- NOTE | 2019-01-18 16:20 | UC ---
Respiratory Complaint HPI - HPI Summary HPI Summary: 4 DAYS OF SORE THROAT, COUGH, CONGESTION. NO NAUSEA/VOMITING. NO FEVER. - History of Current Complaint Chief Complaint: UCRespiratory Stated Complaint: URI Time Seen by Provider: 01/18/19 15:37 Hx Obtained From: Patient Onset/Duration: Gradual Onset, Lasting Days, Still Present Timing: Constant Severity Initially: Mild Severity Currently: Mild Pain Intensity: 0 Pain Scale Used: 0-10 Numeric Character: Cough: Nonproductive Aggravating Factors: Nothing Alleviating Factors: Nothing Associated Signs And Symptoms: Positive: URI, Nasal Congestion. Negative: Fever , Chills, Pleuritic Chest Pain, Wheezing - Allergies/Home Medications Allergies/Adverse Reactions: Allergies Allergy/AdvReac Type Severity Reaction Status Date / Time JITENDRA Inhibitors Allergy Rash Verified 01/18/19 15:17 PMH/Surg Hx/FS Hx/Imm Hx Cardiovascular History: Hypertension - Surgical History Surgical History: Yes Surgery Procedure, Year, and Place: Gallbladdder. Tonsils - Family History Known Family History: Positive: Hypertension, Diabetes - Social History Alcohol Use: Occasionally Substance Use Type: None Smoking Status (MU): Never Smoked Tobacco Household Exposure Type: Cigarettes - Immunization History Most Recent Influenza Vaccination: fall 2013 Most Recent Tetanus Shot: current Most Recent Pneumonia Vaccination: never Review of Systems All Other Systems Reviewed And Are Negative: Yes Constitutional: Positive: Negative ENT: Positive: Sore Throat, Nasal Discharge Respiratory: Positive: Cough Cardiovascular: Positive: Negative Gastrointestinal: Positive: Negative Genitourinary: Positive: Negative Physical Exam Triage Information Reviewed: Yes Appearance: Well-Appearing, No Pain Distress, Well-Nourished Vital Signs: Initial Vital Signs Temp 97.5 F 01/18/19 15:13 Pulse 68 01/18/19 15:13 Resp 16 01/18/19 15:13 BP 137/96 01/18/19 15:13 Pulse Ox 98 01/18/19 15:13 Vital Signs Reviewed: Yes Eyes: Positive: Conjunctiva Clear ENT: Positive: Hearing grossly normal, Pharynx normal, TMs normal Neck: Positive: Supple, Nontender, No Lymphadenopathy Respiratory Exam: Normal Cardiovascular Exam: Normal Abdomen Description: Positive: Soft Musculoskeletal: Positive: No Edema Neurological: Positive: Alert Psychological: Positive: Age Appropriate Behavior Skin: Negative: Rashes Respiratory Course/Dx - Course Course Of Treatment: LIKELY VIRAL ETIOLOGY OF SYMPTOMS. NO INDICATION FOR ANTIBIOTICS AT PRESENT. REST, HYDRATE, OTC MEDS NEEDED. TESSALON FOR COUGH PRESCRIBED. FOLLOW-UP IF NOT IMPROVING OVER THE NEXT 1-2 WEEKS. - Differential Dx/Diagnosis Provider Diagnosis: Acute URI Discharge ED - Sign-Out/Discharge Documenting (check all that apply): Patient Departure All imaging exams completed and their final reports reviewed: No Studies - Discharge Plan Condition: Stable Disposition: HOME Prescriptions: Benzonatate CAP* [Tessalon CAP*] 1 - 2 cap PO TID PRN #30 cap PRN Reason: Cough Patient Education Materials: Upper Respiratory Infection (ED) Referrals: Milton Ford MD [Primary Care Provider] - If Needed Additional Instructions: YOUR SYMPTOMS ARE LIKELY VIRALLY MEDIATED AND SHOULD RESOLVE ON THEIR OWN WITH TIME. NO INDICATION FOR ANTIBIOTICS AT PRESENT. REST, HYDRATE, OTC MEDS NEEDED. COUGH MEDICINE PRESCRIBED. SEEK FOLLOW-UP IF YOU ARE NOT IMPROVING OVER THE NEXT 1-2 WEEKS. USE OTC AFRIN FOR NASAL CONGESTION. 2 SPRAYS IN EACH NOSTRIL TWICE DAILY NEEDED. DO NOT USE FOR MORE THAN 3-4 DAYS IN A ROW TO PREVENT DEVELOPING REBOUND CONGESTION. - Billing Disposition and Condition Condition: STABLE Disposition: Home
== END 2019-01-18 16:32 | disposition home or self-care (01) ==
LOC: UCEAST 15:02
DX: J06.9 Acute upper respiratory infection, unspecified (principal); I10 Essential (primary) hypertension; Z88.8 Allergy status to other drugs, medicaments and biological substances
CPT/HCPCS: 99211; G0463

== ENCOUNTER 2019-05-23 09:37 | Emergency (ER) | payer BC ==
--- NOTE | 2019-05-23 09:56 | ED ---
HPI Chest Pain - HPI Summary HPI Summary: 53 year old M presenting to [facility] with a chief complaint of aching chest pain since 03:00 this morning. Patient reports stabbing abdominal pain 2 days ago at 05:00 that had resolved after approximately 5 hours, as well as today at 03:00 which woke him up. Patient also reports some diaphoresis last night with pain. Describes as lower abdominal cramping that radiates to epigastric area. The patient rates the pain 4/10 in severity at worst - no current pain. No analgesia taken. No history of similar. Patient denies any nausea, diarrhea, back pain, or fever. no fever, chills. He states that he exercised yesterday without any difficulty (weights, elliptical). He is not prescribed blood thinners. He has not had a stress test previously. Patient's medication reviewed this visit. Allergy list reviewed. Pt did have a colonoscopy previously - unknown diverticulosis Pt evaluated during COVID- pandemic- pt denies cough, sob, sore throat, fever , recent illness, contact with PUI/COVID + person - History of Current Complaint Time Seen by Provider: 05/23/19 09:53 Hx Obtained From: Patient Onset/Duration: Started Hours Ago Time of Onset: 03:00 Timing: Constant Current Severity: Moderate Pain Intensity: 4 Pain Scale Used: 0-10 Numeric Chest Pain Radiates: No Character: Dull/Aching Aggravating Factor(s): Nothing Alleviating Factor(s): Nothing Associated Signs and Symptoms: Positive: Negative - Diarrhea, Diaphoresis, Abdominal Pain. Negative: Fever, Nausea, Back Pain - Allergy/Home Medications Allergies/Adverse Reactions: Allergies Allergy/AdvReac Type Severity Reaction Status Date / Time JITENDRA Inhibitors Allergy Rash Verified 01/18/19 15:17 Home Medications: Home Medications Ascorbic Acid TAB* [Vitamin C TAB*] 500 mg PO DAILY 11/16/11 [History Confirmed 05/23/19] Nisoldipine 17 mg PO DAILY 10/22/17 [History Confirmed 05/23/19] PMH/Surg Hx/FS Hx/Imm Hx Previously Healthy: Yes Endocrine/Hematology History: Reports: Hx Blood Disorders - erythrocytosis (Dr. Rangel) Denies: Hx Anticoagulant Therapy, Hx Diabetes, Hx Thyroid Disease, Hx Unexplained Bleeding Cardiovascular History: Reports: Hx Hypertension - on meds Denies: Hx Hypercholesterolemia, Hx Pacemaker/ICD Respiratory History: Reports: Hx Sleep Apnea - uses O2 at night Denies: Hx Asthma, Hx Chronic Obstructive Pulmonary Disease (COPD) GI History: Reports: Hx Gall Bladder Disease - cholecystectomy Denies: Hx Ulcer History: Denies: Hx Renal Disease Musculoskeletal History: Reports: Hx Back Problems - pain, Other Musculoskeletal History - knee pain Sensory History: Reports: Hx Contacts or Glasses Denies: Hx Hearing Aid Opthamlomology History: Reports: Hx Contacts or Glasses Psychiatric History: Denies: Hx Panic Disorder - Surgical History Surgical History: Yes Surgery Procedure, Year, and Place: Gallbladdder. Tonsils Infectious Disease History: Denies: Hx Clostridium Difficile, Hx Hepatitis, Hx Human Immunodeficiency Virus (HIV), Hx of Known/Suspected MRSA, Hx Shingles, Hx Tuberculosis, Hx Known/ Suspected VRE, Hx Known/Suspected VRSA, History Other Infectious Disease - Family History Known Family History: Positive: Hypertension, Diabetes - Social History Occupation: Employed Full-time Lives: With Family Alcohol Use: Occasionally Hx Substance Use: No Substance Use Type: Reports: None Hx Tobacco Use: No Smoking Status (MU): Never Smoked Tobacco Review of Systems Positive: Skin Diaphoresis - resolved. Negative: Fever Positive: Chest Pain Positive: Abdominal Pain. Negative: Diarrhea, Nausea Musculoskeletal: Negative - Back pain All Other Systems Reviewed And Are Negative: Yes Physical Exam - Summary Physical Exam Summary: Vital Signs Reviewed: Yes A+Ox3, no distress, pleasant, no distress Eyes: Conjunctiva Clear, DIAMOND. EOM intact and full ENT: Hearing grossly normal TM x 2 clear, turbinates inflammed and boggy, mmoist, uvula midline, no exudate, no erythema Neck: Positive: Supple Respiratory: Positive: No respiratory distress, No accessory muscle use + CTA throughout no w/r Cardiovascular: RRR nl s1, s2 no m/r CBT <2 sec abd soft + BS nd, mild TTP LLQ, Lmid abdomen - no guarding, no distension Musculoskeletal Exam: CRESPO x 4 without difficulty Strength Intact, ROM Intact Neurological: Positive: Alert, + sensation throughout Psychological: Positive: Normal Response To examiner Skin: Positive: no rash, no ecchymosis Triage Information Reviewed: Yes Vital Signs Reviewed: Yes Procedures - Sedation Patient Received Moderate/Deep Sedation with Procedure: No Diagnostics - Laboratory Result Diagrams: 05/23/19 10:00 05/23/19 10:00 Lab Statement: Any lab studies that have been ordered have been reviewed, and results considered in the medical decision making process. - CT Chest/Abdomen/Pelvis CTA CT Interpretation Completed By: Radiologist Summary of CT Findings: HEPATOMEGALY WITH FATTY INFILTRATION OF THE LIVER. NO AORTIC INTIMAL FLAP TO SUGGEST DISSECTION. ED physician has reviewed this report. - EKG 09:40 Cardiac Rate: NL - 66 BPM EKG Rhythm: Sinus Rhythm Summary of EKG Findings: Minimal ST depression in leads 2, V4, and V5. Compared to 2018, no change. ED physician has reviewed and interpreted this EKG. Re-Evaluation - Re-Evaluation First Eval Comment: Pt feeling well - no complaints. reviewed labs - waiting CT ersults. requesting po water Second Eval Comment: reviewed CT - will give water and crackers. second trop pending. If neg, anticipate discharge. pt comfortable and in agreement with plan. will provide work notes Chest Pain Course/Dx - Course Course Of Treatment: Patient presents to emergency department reporting some lower abdominal pain described as cramping and extended into his epigastrium and upper chest yesterday and again last night. Patient states he had nausea but no vomiting. No fevers or chills. No shortness of breath. Patient states he did feel sweaty during the night when he woke up with it. Patient did not take anything for pain. Patient without any complaints or current symptoms but wanted to "get it checked "patient without fevers. No travel. Patient's vitals reviewed. Patient well-appearing with mild discomfort in the lower abdomen left lower left mid abdomen. No guarding or rebound. No CVA. We'll check labs. We'll give him some Pepcid. Patient declined analgesia. We'll check a CTA Z described coming up feeling a little bit like a tear. We'll discharge. EKG reviewed concerning. Patient comfortable in agreement with plan. Pt does have HTN - take meds at night - has not missed - will monitor BP - Diagnoses Provider Diagnoses: Abdominal pain Discharge ED - Sign-Out/Discharge Documenting (check all that apply): Patient Departure - Discharge Plan Condition: Stable Disposition: HOME Patient Education Materials: Epigastric Pain (ED) Forms: *Gen. Provider Communication, *Work Release Referrals: Milton Ford MD [Primary Care Provider] - Additional Instructions: - Stay well hydrated. Drink plenty of non-alcoholic, non-caffinated beverages - For the first 6 hours, eat and drink clears (water, buster cong, soup broth, jello, popsicles, Gatorade). If you tolerate this okay, add bland foods such as dry toast, scrambled eggs, crackers. Wait until you are feeling better for 24 hours before eating spicy food, acidic food, tomato based food, fried food. - Contact your doctor to schedule a follow-up appointment this week. Contact your doctor, return to the emergency department or call 911 with any questions or concerns - Billing Disposition and Condition Condition: STABLE Disposition: Home - Attestation Statements Document Initiated by Moises: Yes Documenting Scribe: Suzanne Fisher Provider For Whom Moises is Documenting (Include Credential): Roxanne Zarco MD Scribe Attestation: Suzanne Gupta, scribed for Roxanne Zarco MD on 05/23/19 at 1455. Scribe Documentation Reviewed: Yes Provider Attestation: The documentation as recorded by the Suzanne perdomo accurately reflects the service I personally performed and the decisions made by me, Roxanne Zarco MD Status of Scribe Document: Viewed
[2019-05-23 10:11] LABS: ABS Basophils 0.1 10^3/ul (0-0.2); ABS Eosinophils 0.1 10^3/ul (0-0.6); ABS Lymphocytes 1.6 10^3/ul (1.0-4.8); ABS Monocytes 0.6 10^3/ul (0-0.8); ABS Neutrophils 6.6 10^3/ul (1.5-7.7); Eosinophil % 0.7 %; Hematocrit 47 % (42-52); Hemoglobin 16.6 g/dL (14.0-18.0); Lymphocyte % 17.7 %; Mean Corpuscular HGB Conc 35 g/dL (31-36); Mean Corpuscular Hemoglobin 30 pg (27-31); Mean Corpuscular Volume 85 fL (80-94); Mean Platelet Volume 8.1 fL (7.4-10.4); Nucleated Red Blood Cells % 0.1; Platelet Count 277 10^3/uL (150-450); Red Blood Count 5.55 10^6 /uL (4.18-5.48); Red Cell Distribution Width 13 % (10-15); White Blood Count 8.9 10^3/uL (3.5-10.8)
[2019-05-23] MEDS ORDERED: NS 0.9% 1000 ML** 1,000 ML IV ONE (10:18)
[2019-05-23 10:26] LABS: Albumin 4.4 g/dL (3.2-5.2); Albumin/Globulin Ratio 1.4 (1-3); BUN/Creatinine Ratio 12.8 (8-20); Calcium 9.6 mg/dL (8.6-10.3); EGFR African American 113.4 (>60); EGFR Non-African American 93.8 (>60); Globulin 3.1 g/dL (2-4); Magnesium 1.9 mg/dL (1.9-2.7); Potassium 3.5 mmol/L (3.5-5.0); Total Protein 7.5 g/dL (6.4-8.9)
[2019-05-23] MEDS ORDERED: Iohexol 350* (CONTRAST) 500 ML MDV IV ONE (10:49)
[2019-05-23 11:04] LABS: INR 1.1 (0.82-1.09)
[2019-05-23 13:28] VITALS: BP 154/105
== END 2019-05-23 13:26 | disposition home or self-care (01) ==
LOC: ED 09:37
DX: R10.9 Unspecified abdominal pain (principal); R07.9 Chest pain, unspecified; I10 Essential (primary) hypertension; Z79.899 Other long term (current) drug therapy; G47.33 Obstructive sleep apnea (adult) (pediatric)
CPT/HCPCS: 36415; 71275; 74174; 80053; 83690; 83735; 84484; 85025; 85610; 93005; 96360; 96361; 99283; Q9967

== ENCOUNTER 2019-05-27 07:55 | Emergency (ER) | payer BC ==
--- OUTSIDE RECORDS SUMMARY | 2019-05-27 08:02 | XMS REPORT | Continuity of Care Document ---
:1965 External Reference #:[id number] Author Name Milton Ford M.D. Address [address] [place] [address] Care Team Providers Name Role Phone Manan Wheeler MD - Neurological Care Team Information [employer] Machine Helper [phone] Surgery Percy Rangel MD - Hematology Care Team Information [employer] Machine Helper [phone] Nathan Salgado - Urology Care Team Information [employer] Machine Helper [phone] [facility] - Oxygen Equipment & Supplies Care Team Information [employer] Machine Helper Cade Kearney MD Care Team Information [employer] Machine Helper [phone] [facility] Physical Care Team Information [employer] Machine Helper [phone] Therapy - Physical Therapy Problems Active Problems Provider Date Backache Milton Ford M.D. Onset: 02/23/2011 Essential hypertension Milton Ford M.D. Onset: 12/22/2011 Benign essential hypertension Milton Ford M.D. Onset: 03/13/2014 Polycythemia vera (clinical) Milton Ford M.D. Onset: 03/19/2015 Obstructive sleep apnea syndrome Milton Ford M.D. Onset: 03/19/2015 Social History Type Date Description Comments Sex Unknown Tobacco Use Start: Unknown Nonsmoker ETOH Use Occasional Tobacco Use Start: Unknown Patient has never smoked Smoking Status Reviewed: 07/25/18 Patient has never smoked Allergies, Adverse Reactions, Alerts Active Allergies Reaction Severity Comments Date Paul Inhibitors angioedema Moderate 11/14/2014 Inactive Allergies NKDA 09/04/2010 Medications Active Medications SIG Qnty Indications Ordering Date Provider Epsom Salt 2-3 cups per 2 2500gm [place] 01/13/2019 Powder gallons water, [place] LEAD SLOT TECHNICIAN twice daily leg soak Nisoldipine ER 1 by mouth 90tabs R60.0 Milton Ford, 11/12/2016 17mg Tablets ER every evening M.D. 24HR Multivitamin Adult 1 by mouth Unknown 09/15/2014 Tablets every day Vitamin C take one every [place] 09/16/2011 500mg Tablets day [place], LEAD SLOT TECHNICIAN Epipen 2-Phan use as directed Unknown 0.3mg/0.3ML Solution Auto-Inject Methylprednisolone day 1- take 5 Unknown 4mg Tablets tablets day 2- take 4 tablets day 3- take 3 tablets day 4- take 2 tablets day 5- take 1 tablet Hydrocodone-Acetaminophen 1 by mouth four Unknown times a day as 5-325mg Tablets needed pain Methocarbamol take 1-2 Unknown 500mg Tablets tablets by mouth up to 4 times daily Ibuprofen take 1 tablet Unknown 800mg Tablets by mouth two times daily with food maximum daily dose of 2 per day Immunizations CPT Code Status Date Vaccine Lot # [id number] Given 11/22/2018 Influenza Vac, Quadrivalent, Slit Virus, Im [id number] 57582 Given 08/31/2018 Tetanus And Diptheria Adult Preservative Free [id number] >7Yrs 85764 Given 11/12/2017 Influenza Vac, Quadrivalent, Slit Virus, Im [id number] 30539 Given 12/03/2015 Influenza Vac, Quadrivalent, Slit Virus, Im [id number] 68056 Given 01/10/2015 Influenza Vac, Quadrivalent, Slit Virus, Im [id number] 14350 Given 11/30/2013 DO Not Use Split Influenza Virus Vaccine [id number] 92807 Given 11/24/2012 DO Not Use Split Influenza Virus Vaccine [id number] 47466 Given 12/22/2011 Preservative free flu 3 yrs+ and older [id number] 75694 Given 07/18/2008 Tdap Tetanus, W Pertussis [id number] Vital Signs Date Vital Result Comment 05/25/2019 12:46pm BP Systolic 148 mmHg BP Diastolic 98 mmHg Heart Rate 68 /min Body Temperature 98.5 F Respiratory Rate 18 /min Height 72.5 inches from prev Weight 235.00 lb BMI (Body Mass Index) 31.4 kg/m2 01/13/2019 3:21pm BP Systolic 138 mmHg BP Diastolic 82 mmHg Heart Rate 54 /min Body Temperature 98.2 F Respiratory Rate 17 /min Height 72.25 inches 6'0.25" measured Weight 232.00 lb BMI (Body Mass Index) 31.2 kg/m2 Results Test Acquired Date Facility Test Result H/L Range Note Laboratory test 05/23/2019 [facility] [place] Troponin-I 0.00 ng/mL <0.03 1 finding (TnI) CBC Auto Diff 05/23/2019 [facility] [place] White Blood 8.9 10^3/uL Normal 3.5-10.8 Count Red Blood Count 5.55 10^6/uL High 4.18-5.48 Hemoglobin 16.6 g/dL Normal 14.0-18.0 Hematocrit 47 % Normal 42-52 Mean Corpuscular Volume 85 fL Normal 80-94 Mean Corpuscular Hemoglobin 30 pg Normal 27-31 Mean Corpuscular HGB Conc 35 g/dL Normal 31-36 Red Cell Distribution Width 13 % Normal 10-15 Platelet Count 277 10^3/uL Normal 150-450 Mean Platelet Volume 8.1 fL Normal 7.4-10.4 Abs Neutrophils 6.6 10^3/uL Normal 1.5-7.7 Abs Lymphocytes 1.6 10^3/uL Normal 1.0-4.8 Abs Monocytes 0.6 10^3/uL Normal 0-0.8 Abs Eosinophils 0.1 10^3/uL Normal 0-0.6 Abs Basophils 0.1 10^3/uL Normal 0-0.2 Abs Nucleated RBC 0.0 10^3/uL Granulocyte % 73.5 % Lymphocyte % 17.7 % Monocyte % 7.1 % Eosinophil % 0.7 % Basophil % 1.0 % Nucleated Red Blood Cells % 0.1 Comp Metabolic Panel 05/23/2019 [facility] [place] Sodium 138 mmol/L Normal 135-145 Potassium 3.5 mmol/L Normal 3.5-5.0 Chloride 104 mmol/L Normal 101-111 Co2 Carbon Dioxide 23 mmol/L Normal 22-32 Anion Gap 11 mmol/L Normal 2-11 Glucose 151 mg/dL High 70-100 Blood Urea Nitrogen 11 mg/dL Normal 6-24 Creatinine 0.86 mg/dL Normal 0.67-1.17 BUN/Creatinine Ratio 12.8 Normal 8-20 Calcium 9.6 mg/dL Normal 8.6-10.3 Total Protein 7.5 g/dL Normal 6.4-8.9 Albumin 4.4 g/dL Normal 3.2-5.2 Globulin 3.1 g/dL Normal 2-4 Albumin/Globulin Ratio 1.4 Normal 1-3 Total Bilirubin 1.00 mg/dL Normal 0.2-1.0 Alkaline Phosphatase 67 U/L Normal 34-104 Alt 33 U/L Normal 7-52 Ast 24 U/L Normal 13-39 Egfr Non- 93.8 >60 Egfr 113.4 >60 2 Laboratory test finding 05/23/2019 [facility] Magnesium 1.9 mg/dL Normal 1.9- 2.7 Lipase 31 U/L Normal 11.0-82.0 Troponin-I (TnI) 0.00 ng/mL <0.03 3 Inr/Protime 05/23/2019 [facility] Inr 1.10 High 0.82-1.09 4 1 Troponin-I testing on Plasma Separator Tubes (PST) has a known false positive rate of 0.20-0.40%. All positive troponins reflex immediately to secondary confirmatory testing. Using the [employer] DxI 800 Access Immunoassay systems, the 99th percentile upper reference limit was demonstrated to be < 0.03 ng/mL. 2 Because ethnic data is not always readily available, this report includes an eGFR for both -Americans and non- Americans. The National Kidney Disease Education Program (NKDEP) does not endorse the use of the MDRD equation for patients that are not between the ages of 18 and 70, are , have extremes of body size, muscle mass, or nutritional status, or are non- or non-. According to the National Kidney Foundation, irrespective of diagnosis, the stage of the disease is based on the level of kidney function: Stage Description GFR(mL/min/1.73 m(2)) 1 Kidney damage with normal or decreased GFR 90 2 Kidney damage with mild decrease in GFR 60-89 3 Moderate decrease in GFR 30-59 4 Severe decrease in GFR 15-29 5 Kidney failure <15 (or dialysis) 3 Troponin-I testing on Plasma Separator Tubes (PST) has a known false positive rate of 0.20-0.40%. All positive troponins reflex immediately to secondary confirmatory testing. Using the [employer] DxI 800 Access Immunoassay systems, the 99th percentile upper reference limit was demonstrated to be < 0.03 ng/mL. 4 Standard intensity warfarin therapeutic range: 2.0-3.0 High intensity warfarin therapeutic range: 2.5-3.5 Procedures Date Code Description Status 10/22/2017 69333143 Colonoscopy Completed Medical Devices Description No Information Available Encounters Type Date Location Provider Dx Diagnosis Office Visit 05/25/2019 [facility] Milton Ford, R10.13 Epigastric pain 1:00p M.D. Office Visit 01/13/2019 Main Office [place] M54.5 Low back pain 3:00p LEAD SLOT TECHNICIAN R25.2 Cramp and spasm Assessments Date Code Description Provider 05/25/2019 R10.13 Epigastric pain Milton Ford M.D. 01/13/2019 M54.5 Low back pain AMANDEEP Lange 01/13/2019 R25.2 Cramp and spasm AMANDEEP Lange Plan of Treatment 01/13/2019 - [place], FNPM54.5 Low back painFollow up:3 [id number] Cramp and spasmAllNew Medication:Epsom Salt - 2-3 cups per 2 gallons water, twice daily leg soakComments:Medication Management Patient Understands medications he 's taking? Yes No Are there Barriers to Adherence? Yes No Has the patient been asked about herbal supplements and therapies, [facility]? Yes No As always, we strongly encourage a healthy diet and making physical activity a part of your every day life. If you have questions about how or where to start, please contact the office. Functional Status Description No Information Available Mental Status Description No Information Available Referrals Refer to Reason for Referral Status Appt Date [facility] Follow up jw Created [address] [place] [address] [phone] [facility] Physical PHYSICAL THERAPY evaluate and Scheduled Therapy treat lumbago, spasm, scoliosis ? [address] [facility] [address] [place] [address] [phone]
--- OUTSIDE RECORDS SUMMARY | 2019-05-27 08:02 | XMS REPORT | Continuity of Care Document ---
:1965 External Reference #:[id number] Author Name Milton Ford M.D. (transmitted by agent of provider Caitlin Robertson) Address [address] [place] [address] Care Team Providers Name Role Phone Manan Wheeler MD - Neurological Care Team Information Recreation Aide Surgery Percy Rangel MD - Hematology Care Team Information Recreation Aide [phone] Nathan Salgado - Urology Care Team Information Recreation Aide [phone] [facility] - Oxygen Equipment & Supplies Care Team Information Recreation Aide Cade Kearney MD Care Team Information Recreation Aide [phone] [facility] Physical Care Team Information Recreation Aide Therapy - Physical Therapy [facility] - Cardiovascular Care Team Information Recreation Aide [phone] Disease Problems Active Problems Provider Date Backache Milton [...] Epsom Salt 2-3 cups per 2 2500gm [place] 01/13/2019 Powder gallons water, [place], FILM PRINTER twice daily leg soak Nisoldipine ER 1 by mouth 90tabs R60.0 Milton Ford, 11/12/2016 17mg Tablets ER every evening M.D. 24HR Multivitamin Adult 1 by mouth Unknown 09/15/2014 Tablets every day Vitamin C take one every [place] 09/16/2011 500mg Tablets day [place], FILM PRINTER Epipen 2-Phan use as directed Unknown 0.3mg/0.3ML [...] CPT Code Status Date Vaccine Lot # [id number] Given 11/22/2018 Influenza Vac, Quadrivalent, Slit Virus, Im [id number] 84651 Given 08/31/2018 Tetanus And Diptheria Adult Preservative Free [id number] >7Yrs 53812 Given 11/12/2017 Influenza Vac, Quadrivalent, Slit Virus, Im [id number] 82510 Given 12/03/2015 Influenza Vac, Quadrivalent, Slit Virus, Im [id number] 58274 Given 01/10/2015 Influenza Vac, Quadrivalent, Slit Virus, Im [id number] 85450 Given 11/30/2013 DO Not Use Split Influenza Virus Vaccine [id number] 41177 Given 11/24/2012 DO Not Use Split Influenza Virus Vaccine [id number] 03717 Given 12/22/2011 Preservative free flu 3 yrs+ and older [id number] 02494 Given 07/18/2008 Tdap Tetanus, W Pertussis [id number] Vital Signs Date Vital Result Comment 05/25/2019 [...] Result H/L Range Note Laboratory test 05/23/2019 [facility] [place] Troponin-I 0.00 ng/mL <0.03 1 finding (TnI) CBC Auto Diff 05/23/2019 [facility] [place] White Blood 8.9 10^3/uL Normal 3.5-10.8 Count [...] Cells % 0.1 Comp Metabolic Panel 05/23/2019 [facility] [place] Sodium 138 mmol/L Normal 135-145 Potassium 3.5 [...] immediately to secondary confirmatory testing. Using the [employer] DxI 800 Access Immunoassay systems, the 99th [...] immediately to secondary confirmatory testing. Using the [employer] DxI 800 Access Immunoassay systems, the 99th percentile upper reference limit was demonstrated to be < 0.03 ng/mL. 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 01/13/2019 M54.5 Low back pain AMANDEEP Lange 01/13/2019 R25.2 Cramp and spasm AMANDEEP Lange Plan of Treatment 01/13/2019 - THIAGO LangePM54.5 Low back painFollow up:3 [id number] Cramp and spasmAllNew Medication:Epsom Salt - 2-3 cups per 2 gallons water, twice daily leg soakComments:Medication Management Patient Understands medications he 's taking? Yes No Are there Barriers to Adherence? Yes No Has the patient been asked about herbal supplements and therapies, andOTC meds? Yes No As always, we strongly encourage a healthy diet and making physical activity a part of your every day life. If you have questions about how or where to start, please contact the office. Functional Status Description No Information Available Mental Status Description No Information Available Referrals Refer to Reason for Referral Status Appt Date [facility] Follow up-chest pain jw Sent [address] [place] [address] [phone] [facility] Physical PHYSICAL THERAPY evaluate and Scheduled Therapy treat lumbago, spasm, scoliosis ? [address] [facility] [address] [place] [address] [phone]
[2019-05-27 08:27] LABS: ABS Basophils 0.1 10^3/ul (0-0.2); ABS Eosinophils 0.1 10^3/ul (0-0.6); ABS Lymphocytes 1.5 10^3/ul (1.0-4.8); ABS Monocytes 0.5 10^3/ul (0-0.8); ABS Neutrophils 5.7 10^3/ul (1.5-7.7); Eosinophil % 0.9 %; Hematocrit 48 % (42-52); Hemoglobin 17.1 g/dL (14.0-18.0); Mean Corpuscular HGB Conc 35 g/dL (31-36); Mean Corpuscular Hemoglobin 30 pg (27-31); Mean Corpuscular Volume 85 fL (80-94); Mean Platelet Volume 8.2 fL (7.4-10.4); Nucleated Red Blood Cells % 0.2; Platelet Count 276 10^3/uL (150-450); Red Cell Distribution Width 13 % (10-15); White Blood Count 7.9 10^3/uL (3.5-10.8)
--- NOTE | 2019-05-27 08:28 | ED ---
HPI Chest Pain - HPI Summary HPI Summary: The patient is a 53-year-old male presenting [place] [facility] [place] [facility] with a chief complaint of retrosternal chest pain and epigastric pain since 0400 this morning. He woke up with the pressure-like pain this morning. The pain radiates to the bilateral shoulders. He denies any nausea, vomiting, shortness of breath , or dizziness. Pain is currently rated 6/10 in severity. He notes he has been experiencing similar intermittent episodes of this pain, and he has previously been evaluated on 05/23/2019 in the ED with discharge after negative workup and plan for cardiology follow up. Past medical history includes hypertension, sleep apnea with O2 use at home, cholecystectomy, back problems. Nonsmoker. Admits to occasional alcohol use. No substance use. Medications reviewed. Allergies noted. - History of Current Complaint Chief Complaint: EDGeneral Time Seen by Provider: 05/27/19 08:05 Hx Obtained From: Patient Onset/Duration: Started Hours Ago, Still Present Time of Onset: 04:00 Timing: Constant - current episode, Intermittent - episodes of similar pain Initial Severity: Moderate Current Severity: Moderate Pain Intensity: 6 Pain Scale Used: 0-10 Numeric Chest Pain Location: Mid Sternal Chest Pain Radiates: Yes Chest Pain Radiates To:: Shoulder - bilateral Character: Pressure/Squeezing Aggravating Factor(s): Nothing Alleviating Factor(s): Nothing Associated Signs and Symptoms: Positive: Chest Pain. Negative: Dizziness, Shortness of Breath, Nausea, Vomiting - Allergy/Home Medications Allergies/Adverse Reactions: Allergies Allergy/AdvReac Type Severity Reaction Status Date / Time JITENDRA Inhibitors Allergy Rash Verified 05/27/19 07:59 Home Medications: Home Medications Ascorbic Acid TAB* [Vitamin C TAB*] 500 mg PO DAILY 11/16/11 [History Confirmed 05/27/19] Nisoldipine 17 mg PO DAILY 10/22/17 [History Confirmed 05/27/19] Multivitamin 1 each PO DAILY 05/27/19 [History Confirmed 05/27/19] PMH/Surg Hx/FS Hx/Imm Hx Endocrine/Hematology History: Reports: Hx Blood Disorders - erythrocytosis (Dr. Rangel) Denies: Hx Anticoagulant Therapy, Hx Diabetes, Hx Thyroid Disease, Hx Unexplained Bleeding Cardiovascular History: Reports: Hx Hypertension - on meds Denies: Hx Hypercholesterolemia, Hx Pacemaker/ICD Respiratory History: Reports: Hx Sleep Apnea - uses O2 at night Denies: Hx Asthma, Hx Chronic Obstructive Pulmonary Disease (COPD) GI History: Reports: Hx Gall Bladder Disease - cholecystectomy Denies: Hx Ulcer History: Denies: Hx Renal Disease Musculoskeletal History: Reports: Hx Back Problems - pain, Other Musculoskeletal History - knee pain Sensory History: Reports: Hx Contacts or Glasses Denies: Hx Hearing Aid Opthamlomology History: Reports: Hx Contacts or Glasses Psychiatric History: Denies: Hx Panic Disorder - Surgical History Surgical History: Yes Surgery Procedure, Year, and Place: Gallbladdder. Tonsils Infectious Disease History: No Infectious Disease History: Denies: Hx Clostridium Difficile, Hx Hepatitis, Hx Human Immunodeficiency Virus (HIV), Hx of Known/Suspected MRSA, Hx Shingles, Hx Tuberculosis, Hx Known/ Suspected VRE, Hx Known/Suspected VRSA, History Other Infectious Disease, Traveled Outside the [place] in Last 30 Days - Family History Known Family History: Positive: Hypertension, Diabetes - Social History Alcohol Use: Occasionally Hx Substance Use: No Substance Use Type: Reports: None Hx Tobacco Use: No Smoking Status (MU): Never Smoked Tobacco Review of Systems Positive: Chest Pain - retrosternal Negative: Shortness Of Breath Negative: Vomiting, Nausea Neurological/Mental Status: Other - Negative: dizziness All Other Systems Reviewed And Are Negative: Yes Physical Exam - Summary Physical Exam Summary: VITAL SIGNS: Reviewed. GENERAL: Patient is a well-developed and nourished male who is lying comfortable in the stretcher. Patient is not in any acute respiratory distress. HEAD AND FACE: No signs of trauma. No ecchymosis, hematomas or skull depressions. No sinus tenderness. EYES: PERRL, EOMI x 2, No injected conjunctiva, no nystagmus. EARS: Hearing grossly intact. Ear canals and tympanic membranes are within normal limits. MOUTH: Oropharynx within normal limits. NECK: Supple, trachea is midline, no adenopathy, no JVD, no carotid bruit, no c- spine tenderness, neck with full ROM. CHEST: Symmetric, no tenderness at palpation. LUNGS: Clear to auscultation bilaterally. No wheezing or crackles. CVS: Regular rate and rhythm, S1 and S2 present, no murmurs or gallops appreciated. ABDOMEN: Soft, non-tender. No signs of distention. No rebound, no guarding, and no masses palpated. Bowel sounds are normal. EXTREMITIES: FROM in all major joints, no edema, no cyanosis or clubbing. NEURO: Alert and oriented x 3. No acute neurological deficits. Speech is normal and follows commands. SKIN: Dry and warm. Triage Information Reviewed: Yes Vital Signs On Initial Exam: Initial Vitals Temp Pulse Resp BP Pulse Ox 97.6 F 87 16 166/109 98 05/27/19 07:56 05/27/19 07:56 05/27/19 07:56 05/27/19 07:56 05/27/19 07:56 Vital Signs Reviewed: Yes Procedures - Sedation Patient Received Moderate/Deep Sedation with Procedure: No Diagnostics - Vital Signs Vital Signs Temp Pulse Resp BP Pulse Ox 05/27/19 07:56 97.6 F 87 16 166/109 98 - Laboratory Result Diagrams: 05/27/19 08:16 05/27/19 08:16 Lab Statement: Any lab studies that have been ordered have been reviewed, and results considered in the medical decision making process. - Radiology Chest X-Ray Radiology Interpretation Completed By: Radiologist Summary of Radiographic Findings: Impression: No evidence of an acute cardiopulmonary process. Dr. Flores has reviewed this report. - EKG 0802 Cardiac Rate: NL - 62 BPM EKG Rhythm: Sinus Rhythm Summary of EKG Findings: EKG at 0802 reveals normal sinus rhythm at [address] Flores has reviewed and interpreted this EKG. Re-Evaluation - Re-Evaluation First Eval Re-Evaluation Time: 11:45 Change: Improved Comment: Pain has resolved. I discussed all results and plan for discharge. Chest Pain Course/Dx - Course Assessment/Plan: The patient is a 53-year-old male presenting to [facility] with a chief complaint of retrosternal chest pain and epigastric pain since 0400 this morning. He woke up with the pressure-like pain this morning. The pain radiates to the bilateral shoulders. He denies any nausea, vomiting, shortness of breath, or dizziness. Pain is currently rated 6/10 in severity. He notes he has been experiencing similar intermittent episodes of this pain, and he has previously been evaluated on 05/23/2019 in the ED with discharge after negative workup and plan for cardiology follow up. Past medical history includes hypertension, sleep apnea with O2 use at home, cholecystectomy , back problems. Nonsmoker. Admits to occasional alcohol use. No substance use. Medications reviewed. Allergies noted. In the ED course, the patient was placed on a hall monitor, IV access was obtained, IV fluids started. Past medical records reviewed. Blood test w/o a significant abnormality except for potassium 3.3, glucose 209, troponin 0.00, total bili 1.2. Chest x-ray shows no acute cardiopulmonary disease. EKG shows normal sinus rhythm without ST elevations. Patient reports that all symptoms have resolved. Patients Heart score is 2; therefore, low suspicion for CAD. Patient is not hypoxic or tachycardic. Wells criteria is 0. Therefore, no suspicion for PE. Patient has no abdominal bruit, thus no suspicion for AAA. Patients pain does not radiate to the back, and pain has resolved, thus low suspicion for aortic dissection. I discussed all the findings and test results with the patient. Patient was instructed to return to the emergency room immediately if any of the symptoms return or worsen. Patient understands and agrees. Plan of care was discussed with the patient and patient understands and agrees. All questions were answered at patient satisfaction. There were no further complaints or concerns. PE before discharge: CVS: S1 and S2 present. No murmurs appreciated. Abdominal exam before discharge: Soft, non-tender. No signs of distention. No rebound no guarding, and no masses palpated. Bowel sounds are normal. Patient is alert and oriented x 3. Patient is hemodynamically stable. - Chest Pain Differential Diagnosis/HQI/PQRI: Acute DE, ACS, Angina, CHF, Chest Wall, GI Disease, Lower Respiratory Infection, Pulmonary Edema - Diagnoses Provider Diagnoses: Atypical chest pain - Critical Care Time Critical Care Statement: Critical care time is provided exclusive of any time spent performing procedures. Discharge ED - Sign-Out/Discharge Documenting (check all that apply): Patient Departure - Patient will be discharged home. - Discharge Plan Condition: Stable Disposition: HOME Patient Education Materials: Chest Pain (DC) Referrals: Milton Ford MD [Primary Care Provider] - 3 Days Additional Instructions: Follow up with your primary care provider in 2-3 days. Follow up with your teacher associate as previously recommended. Return to the emergency department for any new or worsening symptoms. - Billing Disposition and Condition Condition: STABLE Disposition: Home - Attestation Statements Document Initiated by Scribe: Yes Documenting Scribe: Geovanna Sheth Provider For Whom Scribe is Documenting (Include Credential): Morales Flores MD Scribe Attestation: I, Geovanna Sheth, scribed for Morales Flores MD on 05/28/19 at 1121. Scribe Documentation Reviewed: Yes Provider Attestation: The documentation as recorded by the Geovanna perdomo accurately reflects the service I personally performed and the decisions made by me, Morales Flores MD Status of Scribe Document: Viewed
[2019-05-27 08:37] LABS: Activated Partial Thrombo Time 34.6 seconds (26.0-38.0); INR 1.14 (0.82-1.09)
[2019-05-27 08:45] LABS: Albumin 4.4 g/dL (3.2-5.2); Albumin/Globulin Ratio 1.5 (1-3); BUN/Creatinine Ratio 14.9 (8-20); Calcium 9.5 mg/dL (8.6-10.3); EGFR African American 102.4 (>60); EGFR Non-African American 84.6 (>60); Potassium 3.3 mmol/L (3.5-5.0); Total Bilirubin 1.2 mg/dL (0.2-1.0); Total Protein 7.4 g/dL (6.4-8.9)
[2019-05-27 08:50] LABS: CKMB ng/mL 4.8 ng/mL (0.6-6.3)
[2019-05-27 09:36] LABS: TSH (Thyroid Stimulating Horm) 1.18 mcIU/mL (0.34-5.60)
[2019-05-27 11:51] VITALS: BP 140/101
== END 2019-05-27 12:00 | disposition home or self-care (01) ==
LOC: ED 07:55
DX: R07.89 Other chest pain (principal); I10 Essential (primary) hypertension; G47.30 Sleep apnea, unspecified; Z79.899 Other long term (current) drug therapy
CPT/HCPCS: 36415; 71045; 80053; 82550; 82553; 83605; 83735; 83880; 84443; 84484; 85025; 85610; 85730; 93005; 99283

== ENCOUNTER 2021-02-07 07:40 | Inpatient (IN) ==
[2021-02-07 08:49] LABS: ABS Basophils 0.1 10^3/ul (0-0.2); ABS Eosinophils 0.1 10^3/ul (0-0.6); ABS Monocytes 0.6 10^3/ul (0-0.8); ABS Neutrophils 8.1 10^3/ul (1.5-7.7); Eosinophil % 0.6 %; Hematocrit 45 % (42-52); Hemoglobin 15.7 g/dL (14.0-18.0); Lymphocyte % 9.9 %; Mean Corpuscular HGB Conc 35 g/dL (31-36); Mean Corpuscular Hemoglobin 30 pg (27-31); Mean Corpuscular Volume 85 fL (80-94); Mean Platelet Volume 8.3 fL (7.4-10.4); Nucleated Red Blood Cells % 0.1; Platelet Count 189 10^3/uL (150-450); Red Blood Count 5.28 10^6 /uL (4.18-5.48); Red Cell Distribution Width 13 % (10-15); White Blood Count 9.8 10^3/uL (3.5-10.8)
[2021-02-07 09:02] LABS: INR 1.28 (0.86-1.15)
[2021-02-07 09:05] LABS: Albumin/Globulin Ratio 1.4 (1-3); Calcium 8.8 mg/dL (8.6-10.3); Globulin 2.9 g/dL (2-4); Potassium 3.3 mmol/L (3.5-5.0); Total Bilirubin 2.4 mg/dL (0.2-1.0); Total Protein 6.9 g/dL (6.4-8.9); eGFR CKD-EPI 95.7 (>60)
[2021-02-07 09:07] LABS: Troponin I 0.01 ng/mL (<0.03)
[2021-02-07 09:18] LABS: Magnesium 1.6 mg/dL (1.9-2.7)
[2021-02-07] MEDS ORDERED: Potassium Chlor 20 meq TAB.ER PO ONE (09:43)
[2021-02-07] MEDS ORDERED: Magnesium Sulfate 2 gm BAG 2 GM/50 ML BAG IVPB ONE ×2 (09:43→12:49)
[2021-02-07] MEDS ORDERED: Iohexol 350 (CONTRAST) 500 ML MDV IV ONE (09:52)
[2021-02-07 10:09] LABS: Direct Bilirubin 0.5 mg/dL (0.03-0.18); Indirect Bilirubin 1.9 mg/dL (0.3-1.0)
[2021-02-07] MEDS ORDERED: Iodixanol (CONTRAST) 320 MG/ML 100 ML SDV IV ONE (11:48)
[2021-02-07] MEDS: KCL 10 MEQ/50 ML IVPREMIX 10 MEQ/50 ML BAG IV SCH ×2 (11:59→13:45)
[2021-02-07] MEDS ORDERED: Dexamethasone IV 4 MG/ML VIAL 1 ml VIAL IV SLOW PU ONE (12:09)
[2021-02-07] MEDS ORDERED: Remdesivir 100 mg Vial 200 MG in NS 0.9% 250 ml 210 ML IV ONE (12:49)
[2021-02-07] MEDS ORDERED: Dextrose 50% Syringe 50 ml 25 GM/50 ML SYRINGE IV PUSH PRN (12:52)
[2021-02-07] MEDS: Enoxaparin 40 MG/0.4 ML SYR SUBCUT SCH (13:46)
[2021-02-07] MEDS: Nystatin TOP POWDER 15 GM BTL TOPICAL SCH (19:45)
[2021-02-08 06:40] LABS: ABS Lymphocytes 1.3 10^3/ul (1.0-4.8); ABS Monocytes 0.9 10^3/ul (0-0.8); ABS Neutrophils 12.1 10^3/ul (1.5-7.7); Hematocrit 43 % (42-52); Hemoglobin 14.8 g/dL (14.0-18.0); Lymphocyte % 9.3 %; Mean Corpuscular HGB Conc 35 g/dL (31-36); Mean Corpuscular Hemoglobin 30 pg (27-31); Mean Corpuscular Volume 86 fL (80-94); Mean Platelet Volume 8.7 fL (7.4-10.4); Platelet Count 178 10^3/uL (150-450); Red Blood Count 4.96 10^6 /uL (4.18-5.48); Red Cell Distribution Width 13 % (10-15); White Blood Count 14.3 10^3/uL (3.5-10.8)
[2021-02-08 06:42] LABS: INR 1.33 (0.86-1.15)
[2021-02-08 06:55] LABS: Albumin 3.8 g/dL (3.2-5.2); Albumin/Globulin Ratio 1.4 (1-3); Calcium 8.7 mg/dL (8.6-10.3); Globulin 2.8 g/dL (2-4); Potassium 3.7 mmol/L (3.5-5.0); Total Bilirubin 1.7 mg/dL (0.2-1.0); Total Protein 6.6 g/dL (6.4-8.9); eGFR CKD-EPI 109.7 (>60)
[2021-02-08] MEDS ORDERED: NISOLDIPINE 25.5 MG PO SCH (09:00)
[2021-02-08] MEDS ORDERED: Remdesivir 100 mg Vial 100 MG in NS 0.9% 250 ml 230 ML IV SCH (09:00)
[2021-02-08] MEDS: Nystatin TOP POWDER 15 GM BTL TOPICAL SCH ×2 (10:04→12:31)
[2021-02-08] MEDS: Enoxaparin 40 MG/0.4 ML SYR SUBCUT SCH (12:31)
[2021-02-08 15:13] VITALS: BP 136/88
== END 2021-02-08 17:15 | disposition home or self-care (01) | DRG 137 ==
LOC: ED 07:40 → EDHOLD 12:46 → SUATTDRO 12:46 → MED 14:55
PROVIDERS: ADMIT Hospitalist; ATTEND Hospitalist